=== PATIENT | female | born 2000 | race Two or more races ===

== ENCOUNTER 2022-09-23 20:46 | Inpatient (IN) | payer MEDICAID, OTHER ==
[~2022-09-23] VITALS: Ht 152.4 cm; Wt 36.7 kg
--- NOTE | 2022-09-23 21:20 | NUR ---
Pt is noted alert, responsive was brought in from [facility] for body pain, Nephro Tube infection , pain [id number] 03/31. Pt care continue as awaits MD orders.
[2022-09-23] MEDS ORDERED: KETOROLAC TROMETHAMINE INJ 30 MG/ML VIAL IV ONE (21:30)
[2022-09-23] MEDS ORDERED: KETOROLAC TROMETHAMINE 15 MG/ML VIAL ONE (22:00)
[2022-09-23 22:05] LABS: BASOPHILS % (AUTO) 0.4 % (0.0-2.0); EOSINOPHILS % (AUTO) 4.9 % (0.0-6.0); HEMATOCRIT 32 % (33-45); LYMPHOCYTES # (AUTO) 1.1 K/uL (0.8-4.8); LYMPHOCYTES % (AUTO) 9.6 % (20.0-44.0); MEAN CORPUSCULAR HGB CONC 32 g/dl (31.0-36.0); MEAN CORPUSCULAR VOLUME 89 fL (82-100); MONOCYTES # (AUTO) 0.5 K/uL (0.1-1.30); MONOCYTES % (AUTO) 4.1 % (2.0-12.0); NEUTROPHILS # (AUTO) 9.7 K/uL (1.8-8.9); PLATELET COUNT (AUTO) 655 K/uL (150-450); RED BLOOD CELL COUNT(AUTO) 3.57 MIL/uL (4.0-5.2)
--- NOTE | 2022-09-23 22:30 | NUR ---
Pt is off to CT. Pt care continue.
[2022-09-23 22:33] LABS: ALBUMIN 2.1 g/dL (3.4-5.0); BILIRUBIN,DIRECT 0.1 mg/dL (0.0-0.2); BILIRUBIN,TOTAL 0.2 mg/dL (0.2-1.0); CALCIUM, SERUM 8.8 mg/dL (8.5-10.1); CREATININE 0.8 mg/dL (0.6-1.3); TOTAL PROTEIN, SERUM 8.5 g/dL (6.4-8.2)
[2022-09-23 22:37] LABS: POTASSIUM 2.4 mmol/L (3.5-5.1)
--- NOTE | 2022-09-23 22:46 | NUR ---
Pt is noted back from the CT. Pt care continue.
[2022-09-23] MEDS ORDERED: CEFEPIME 1 GM VIAL ONE (22:52)
[2022-09-23] MEDS ORDERED: IV NS 0.9% 1,000 ML IV ONE (23:00)
[2022-09-23] MEDS ORDERED: POTASSIUM CHLORIDE 20 MEQ TAB.PRT.SR PO ONE (23:00)
[2022-09-23] MEDS ORDERED: CEFEPIME 1 GM in IV D5W 50 ML IV ONE (23:00)
[2022-09-23] MEDS: POTASSIUM CL. PREMIX PERIPHER. 50 ML IV SCH (23:05)
--- NOTE | 2022-09-23 23:15 | NUR ---
Pt is been admitted as awaits bed and also Potassium 10meq IVPB and K-DUR PO 40meq given for Potassium Level off 2.4 and also Maxipim 1g IVPB given as ordered. Pt care contionue.
[2022-09-23 23:16] LABS: BILIRUBIN,URINE NEGATIVE (NEGATIVE); COLOR,URINE YELLOW (YELLOW); LEUKOCYTE ESTERASE ,URINE 3+ (NEGATIVE); NITRITE, URINE POSITIVE (NEGATIVE); PH,URINE 7.5 (5.0-8.0); PROTEIN,URINE TRACE mg/dl (NEGATIVE); UGLUCOSE NEGATIVE (NEGATIVE); UROBILINOGEN,URINE 0.2 EU/dL (0.2)
[2022-09-23 23:23] LABS: BACTERIA,URINE Few /HPF (None Seen); SQUAMOUS EPITHELIAL CELL,UR Moderate /HPF (None Seen)
--- NOTE | 2022-09-23 23:40 | NUR ---
Pt remain full code as report is given to the [facility] RN and Pt is going to Room 113-1. Pt care continue as awaits to be transported to the Floor.
[2022-09-24] VITALS (10 sets, daily range): BP systolic 83–103; BP diastolic 38–56
[2022-09-24] MEDS ORDERED: ZOLPIDEM TARTRATE 5 MG TABLET PO PRN
[2022-09-24] MEDS ORDERED: MAG HYDROX/AL HYDROX/SIMETH 30 ML UDC PO PRN
[2022-09-24] MEDS ORDERED: Z GUARD REMEDY 4 OZ OINT TP PRN
[2022-09-24] MEDS ORDERED: MAGNESIUM HYDROXIDE 30 ML UDC PO PRN
[2022-09-24] MEDS ORDERED: MORPHINE SULFATE INJ 2 MG/ML DISP.SYRIN IV PRN
--- NOTE | 2022-09-24 00:47 | NUR ---
RN NOTE BP 86/49, MANUAL BP TAKEN 74/56. RECEIVED ORDER FROM SKYLA NUGENT FOR 1L NS BOLUS.
--- NOTE | 2022-09-24 01:11 | NUR ---
RN NOTE AUTOMATIC BP OF 86/49; MANUAL BP TAKEN 74/56. ORDER OBTAINED FROM SKYLA NUGENT FOR 1L NS BOLUS. WILL RE-CHECK BP AFTERWARDS.
--- NOTE | 2022-09-24 01:11 | NUR ---
RN INITIAL NOTE PT ARRIVED TO UNIT VIA GURNEY. PT ADMITTED FOR ACUTE PYELONEPHRITIS AND HYPOKALEMIA. MEDICAL HISTORY INCLUDING HIV AND PYELONEPHRITIS. PER PT, SHE DOES NOT HAVE ANY FAMILY MEMBERS AND HAD PUT HERSELF INTO HOSPICE FOR HER HISTORY OF HIV. PT NOTED TO HAVE REDDENED AREAS ON SACRUM, BILATERAL BUTTOCKS, AND RIGHT THIGH. PT ALSO HAD RIGHT ARM AMPUTATION D/T SPIDER BITE PER PT REPORTS. PICTURES TAKEN AND PLACED IN CHART. PT IS A/O X4, CALM, COOPERATIVE, IRRITABLE. PT ON ROOM AIR WITH CURRENT O2SAT OF 98% WITH NO S/S OF RESP DISTRESS. PT ATTACHED TO TELE MONITOR, SR WITH HR OF 96. IV ACCESS ON LEFT WRIST 22G, INTACT AND PATENT, FLUSHES EASILY WITH NO RESISTANCE; NS BOLUS 1L INFUSING. LEFT-SIDED NEPHROSTOMY TUBE INTACT AND PATENT, DRAINING CLEAR AND YELLOW URINE; DRESSING CHANGED; PER PT REPORTS SHE ALSO URINATES "NORMALLY". BELONGINGS CHECKED AND ACCOUNTED FOR. BED IN LOWEST POSITION, CALL LIGHT WITHIN REACH, SIDE RAILS UP X2. WILL INITIATE PLAN OF CARE.
--- NOTE | 2022-09-24 01:40 | NUR ---
RN NOTE AFTER 1L NS BOLUS WAS GIVEN, BP RECHECKED 87/48. RECEIVED ORDER FOR SOLU-CORTEF 100 MG IV. ORDER CARRIED OUT.
[2022-09-24] MEDS: POTASSIUM CL. PREMIX PERIPHER. 50 ML IV SCH ×3 (01:50→02:06)
[2022-09-24] MEDS: IV NS 0.9% 1,000 ML IV PRN ×2 (01:51→16:12)
[2022-09-24] MEDS ORDERED: HYDROCORTISONE SOD SUCCINATE 100 MG/2 ML VIAL IV ONE (02:00)
[2022-09-24] MEDS ORDERED: methylPREDNISolone SOD SUCC 125 MG/2ML VIAL ONE (02:16)
[2022-09-24] MEDS ORDERED: HYDROCORTISONE SOD SUCCINATE 100 MG/2 ML VIAL ONE (02:21)
--- NOTE | 2022-09-24 02:24 | NUR ---
RN NOTE NO STOCK OF SOLU-CORTEF IN [facility]. ATTEMPTED IN ICU, BUT MISTAKENLY TOOK OUT SOLU-MEDROL; NO STOCK OF SOLU-CORTEF IN ICU EITHER. SOLU-CORTEF 100 MG OBTAINED FROM ER. Addendum: 09/24/22 at 0433 by PRINCESS KENDRICK REID SOLU-MEDROL RETURNED PROPERLY BACK IN [facility]
[2022-09-24] MEDS ORDERED: IV LR 1000 ML 1,000 ML IV ONE (03:00)
--- NOTE | 2022-09-24 03:57 | NUR ---
RN NOTE PT COMPLAINS OF PAIN ON IV SITE WITH POTASSIUM INFUSION. PER DELISA NUGENT KCL IV AND GIVE KDUR 20 MEW PO. ORDER CARRIED OUT.
[2022-09-24] MEDS ORDERED: POTASSIUM CHLORIDE 20 MEQ TAB.PRT.SR PO SCH (04:00)
--- NOTE | 2022-09-24 04:26 | NUR ---
RN NOTE 30 MINS AFTER SOLU-CORTEF ADMINISTERED, BP 89/52.
[2022-09-24] MEDS ORDERED: CEFEPIME 1 GM in IV D5W 50 ML IV SCH ×3 (05:00)
--- NOTE | 2022-09-24 05:11 | NUR ---
RN NOTE ATTEMPTED TO GIVE LR BOLUS, BUT PT CRYING SAYING IT HURTS. CURRENT BP OF 92/53. SKYLA NUGENT NOTIFIED AND ASKED IF BOLUS CAN BE HELD UNTIL AFTER MIDLINE INSERTION; PER RAFFI "OK". LR BOLUS ON HOLD FOR NOW.
--- NOTE | 2022-09-24 05:46 | NUR ---
RN NOTE MAXIPIME ORDER FAXED TO NURSING COMMUNITY OUTREACH [facility] AND CALLED TO PULL OUT MED FROM [facility]. AWAITING MED FROM N[facility]SING [facility]ITY [facility]RE[facility]
[2022-09-24] MEDS ORDERED: CEFEPIME 1 GM VIAL ONE (06:25)
[2022-09-24 06:55] LABS: BASOPHILS % (AUTO) 0.2 % (0.0-2.0); EOSINOPHILS % (AUTO) 1.5 % (0.0-6.0); HEMATOCRIT 29 % (33-45); HEMOGLOBIN 9.5 g/dL (11.5-14.8); LYMPHOCYTES # (AUTO) 0.6 K/uL (0.8-4.8); LYMPHOCYTES % (AUTO) 5.4 % (20.0-44.0); MEAN CORPUSCULAR HGB CONC 32 g/dl (31.0-36.0); MEAN CORPUSCULAR VOLUME 91 fL (82-100); MONOCYTES # (AUTO) 0.3 K/uL (0.1-1.30); MONOCYTES % (AUTO) 2.5 % (2.0-12.0); NEUTROPHILS # (AUTO) 9.2 K/uL (1.8-8.9); NEUTROPHILS % (AUTO) 90.4 % (43.0-81.0); PLATELET COUNT (AUTO) 484 K/uL (150-450); RED BLOOD CELL COUNT(AUTO) 3.24 MIL/uL (4.0-5.2); WHITE BLOOD COUNT (AUTO) 10.2 K/uL (4.3-11.0)
--- NOTE | 2022-09-24 07:40 | NUR ---
SEWING MACHINE OPERATOR SEMIAUTOMATIC CLOSING NOTE PT REMAINS IN BED, AWAKE, ANXIOUS. CONTINUES TO BE ON RA WITH O2SAT STABLE AT 98% WITH NO S/S OF RESP DISTRESS. ATTACHED TO TELE MONITOR, SR WITH HR 82-98. LEFT SIDE NEPHROSTOMY TUBE INTACT AND PATENT, DRAINING CLEAR AND YELLOW URINE. IV ACCESS ON LFA 22G, INTACT AND PATENT, NS INFUSING AT 120 ML/HR AND MAXIPIME AT 100 ML/HR. ALL DUE MEDS ADMINISTERED DURING THE NIGHT. BED IN LOWEST POSITION, CALL LIGHT WITHIN REACH, SIDE RAILS UP X2. WILL ENDORSE TO DAYSHIFT NURSE TO CONTINUE CARE.
[2022-09-24 07:51] LABS: ALBUMIN 1.8 g/dL (3.4-5.0); CALCIUM, SERUM 8.6 mg/dL (8.5-10.1); CREATININE 0.8 mg/dL (0.6-1.3); MAGNESIUM 2.2 mg/dL (1.8-2.4); POTASSIUM 2.9 mmol/L (3.5-5.1); TOTAL PROTEIN, SERUM 7.6 g/dL (6.4-8.2)
[2022-09-24 08:02] LABS: BILIRUBIN,TOTAL 0.2 mg/dL (0.2-1.0); PHOSPHORUS 3.8 mg/dL (2.5-4.9)
--- NOTE | 2022-09-24 09:07 | NUR ---
WOUND CARE CONSULT: PT LYING ON HER RT SIDE AND REFUSED TO TURN OVER FOR FULL SKIN ASSESSMENT. PT NOTED TO HAVE NEPHROSTOMY TUBE WITH DRAINAGE BAG, SACRAL INTACT DEEP TISSUE INJURY AND LARGE AREA OF SCARRING TO SACRAL/BUTTOCKS, UPPER THIGHS, ALL PRESENT ON ADMISSION. DISCUSSED SKIN PROTECTION WITH NURSING STAFF. PT IS INCONTINENT. IN AGREEMENT WITH PLAN OF CARE. Addendum: 09/24/22 at 0910 by MARCIN TRAYLOR WNDNU Amended: Links added.
[2022-09-24] MEDS ORDERED: QUET400T PO (09:48)
[2022-09-24] MEDS ORDERED: ACET-2605 PO (09:48)
[2022-09-24] MEDS ORDERED: LORA-259 PO (09:48)
[2022-09-24] MEDS ORDERED: ASCO-352 PO (09:48)
[2022-09-24] MEDS ORDERED: FAMO20TA8 PO (09:48)
[2022-09-24] MEDS ORDERED: MIRT-90 PO (09:48)
[2022-09-24] MEDS ORDERED: MULT-24 PO (09:48)
[2022-09-24] MEDS ORDERED: DOCU250C14 PO (09:48)
[2022-09-24] MEDS ORDERED: METO25TA3 PO (09:48)
[2022-09-24] MEDS ORDERED: GABA-532 PO (09:48)
[2022-09-24] MEDS ORDERED: ZINC1CAP2 PO (09:48)
--- NOTE | 2022-09-24 11:30 | NUR ---
RN NOTES NOTIFIED DR. WELLER THAT PT'S PAIN IS NOT CONTROLLED. PER DR. WELLER'S REQUEST, PLACED ORDER FOR D/C OF 1MG MORPHINE AND PLACE ORDER FOR 2MG MORPHINE IV Q3H AND NORCO 10MG PO Q6H INSTEAD.
[2022-09-24] MEDS ORDERED: HYDROCODONE/APAP 10/325MG TABLET PO PRN (12:00)
[2022-09-24] MEDS ORDERED: POTASSIUM CHLORIDE 20 MEQ POWDER PACKET PO ONE (12:00)
[2022-09-24] MEDS: MORPHINE SULFATE INJ 2 MG/ML DISP.SYRIN IV PRN ×3 (12:09→18:30)
[2022-09-24] MEDS: ONDANSETRON HCL/PF 4 MG/2 ML VIAL IVP PRN ×2 (13:43→23:30)
--- NOTE | 2022-09-24 13:50 | NUR ---
RN NOTES NOTIFIED DR. WELLER THAT PT WAS UNABLE TO TOLERATE ORAL POTASSIUM AND VOMITTED X1. ZOFRAN WAS GIVEN. RECEIVED VERBAL ORDERS FROM DR. WELLER TO ORDER CEPACOL LOZENGE Q2H FOR PT'S SORE THROAT.
[2022-09-24] MEDS: MENTHOL/CETYLPYRD (CEPACOL) 1 LOZ LOZENGE PO PRN ×2 (15:18→22:11)
[2022-09-24] MEDS: CEFEPIME 2 GM in IV D5W 100 ML IV SCH (16:01)
[2022-09-24] MEDS: PROSOURCE / PROSTAT (PYXIS) 30 ML UDC GT SCH (16:01)
--- NOTE | 2022-09-24 16:19 | NUR ---
RN NOTES PT IS STABLE, VSS, ALL DUE MEDICATIONS GIVEN. REPORT GIVEN TO DESTINEY FOR CONTINUATION OF CARE.
[2022-09-24] MEDS: ENSURE ENLIVE CHOC 237 ML CAN PO SCH (17:20)
[2022-09-24] MEDS: ACETAMINOPHEN 325 MG TABLET PO PRN (17:45)
[2022-09-24] MEDS ORDERED: ACETAMINOPHEN 650 MG/SUPP.RECT RC PRN (18:00)
[2022-09-24] MEDS ORDERED: LORAZEPAM INJ 2 MG/ML VIAL IV ONE (18:00)
[2022-09-24] MEDS ORDERED: MEPERIDINE25 MG SYR 25 MG/ML VIAL IV ONE ×2 (18:30→20:30)
--- NOTE | 2022-09-24 18:35 | NUR ---
rn note pharmacy refused to dispense the Demerol doctor Nicko Love notified
--- NOTE | 2022-09-24 18:43 | NUR ---
ORDER CHECKER CLOSING NOTE PT REMAINS IN BED, AWAKE, ANXIOUS. CONTINUES TO BE ON RA WITH O2SAT STABLE AT 98%CURRENTLY HAS FEVER 106 , TYLENOL SUPPOSITORY 650 MG ADMINISTERED. PATIENT IS ATTACHED TO TELE MONITOR RECENTLY HAD VTACH EPISODE DR HE PROVIDED WITH REPORT AFTER INFUSING ATIVAN 0.5 MG IV AND MORPHINE 2 MG IV , PATIENT CALMED DOWN , SR WITH HR 82-98. LEFT SIDE NEPHROSTOMY TUBE INTACT AND PATENT, DRAINING CLEAR AND YELLOW URINE. IV ACCESS ON LFA 22G, INTACT AND PATENT, NS INFUSING AT 120 ML/HR ALL DUE MEDS ADMINISTERED DURING THE DAY SHIFT BED IN LOWEST POSITION, CALL LIGHT WITHIN REACH, SIDE RAILS UP X2. WILL ENDORSE TO HAND MOLDER AND CASTER NURSE TO CONTINUE CARE.
--- NOTE | 2022-09-24 20:03 | NUR ---
TOP STOP ATTACHER OPENING NOTE PATIENT AWAKE IN BED, ALERT/ORIENTED X 4, PT ABLE TO MAKE NEEDS KNOWN. PATIENT STILL C/O 10/10 PAIN DESPITE MORPHINE 2 MG IV GIVEN RECENTLY. PATIENT'S BP LOW, 83/39 AT THE MOMENT, ONLY ALLOWING US TO TAKE BP ON LEG, WILL REASSESS. PATIENT ON EXTERNAL BARIATRIC NURSE READING SINUS TACHY, HR: 112. IV ACCESS ON LFA #22G INTACT AND INFUSING NS @ 120 ML/HR. LEFT NEPHROSTOMY TUBE IN PLACE AND DRAINING URINE. SAFETY MEASURES IN PLACE: CALL LIGHT WITHIN REACH, SIDE RAILS UP X 2, BED LOCKED IN LOWEST POSITION, HOB ELEVATED, BED ALARM ON. WILL CONTINUE TO MONITOR PATIENT
[2022-09-24] MEDS ORDERED: IV NS 0.9% 1,000 ML IV ONE (21:00)
--- NOTE | 2022-09-24 21:05 | NUR ---
RAILCAR FOREMAN NOTE NOTIFIED APPLICATIONS PROGRAMMER ANALYST SKYLA NUGENT OF LOW BP, REASSESSED BP = 86/43, HR: 114. PER SKYLA 1000 ML BOLUS OF NS. PATIENT ALSO C/O OF 03/31, PER SKYLA GIVE DEMEROL 12.5 MG IV X 1. ALSO NOTIFIED OF LOW POTASSIUM 2.9, PER DAYSHIFT RN PATIENT UNABLE TO TOLERATE POTASSIUM IV AND THREW UP PO K DUR. PER SKYLA SHE WILL PUT ORDER FOR K LIDO 40 MEQ
[2022-09-24] MEDS ORDERED: POTASSIUM CL. PREMIX PERIPHER. 200 ML ONE (22:25)
[2022-09-24] MEDS ORDERED: LIDOCAINE HCL/PF 1% 30 ML SDV ONE (22:27)
--- NOTE | 2022-09-24 22:29 | NUR ---
WATERMELON HARVESTING SUPERVISOR NOTE PER GOLD ASSAYER SKYLA NUGENT, ORDER FOR 4 BAGS OF POTASSIUM CHLORIDE 10 MEQ WITH XYLOCAINE MPF 1% 1 ML IN D5W 50 ML. MEDICATION NOT AVAILABLE IN [facility]. COMMUNITY AFFAIRS MANAGER DAYRON CALLED PHARMACY TO CONFIRM ORDER, PER PHARMACIST MIX 1 ML OF LIDOCAINE PER EACH BAG OF POTASSIUM CHLORIDE 10 MEQ. COMMUNITY AFFAIRS MANAGER OVERRIDE 4 BAGS OF POTASSIUM 10 MEQ AND 1 VIAL OF LIDOCAINE 1% MPF, WILL ONLY USE 1 ML PER BAG AND WASTE THE REST OF THE VIAL
[2022-09-24] MEDS: Potassium Chloride 10 MEQ, LIDOCAINE HCL/PF 1% 1 ML in IV D5W 50 ML IV SCH (22:35)
--- NOTE | 2022-09-24 23:35 | NUR ---
WATER MANAGER NOTE PATIENT NAUSEOUS WITH 1 EPISODE OF EMESIS 200 ML. PRN ZOFRAN 4 MG IV GIVEN. WILL CONTINUE TO MONITOR
[2022-09-25] VITALS (10 sets, daily range): BP systolic 80–105; BP diastolic 40–79
[2022-09-25] MEDS ORDERED: LORAZEPAM INJ 2 MG/ML VIAL IV ONE
[2022-09-25] MEDS: Potassium Chloride 10 MEQ, LIDOCAINE HCL/PF 1% 1 ML in IV D5W 50 ML IV SCH ×3 (00:05→03:20)
--- NOTE | 2022-09-25 00:05 | NUR ---
TEXTILES PRINTER NOTE PATIENT VERY ANXIOUS AND AGITATED, YELLING FOR HELP, PATIENT SHAKING DESPITE HAVING 8 BLANKETS PER PATIENT REQUEST. VITALS ASSESSED BP 99/79, HR: 159, TEMP 98.6. CONTACTED GENERAL DISTILLERY WORKER MD SKYLA NUGENT WITH ORDER FOR ATIVAN 1 MG IV X 1 TIME. AGUILA CLAROS ALSO PLACED ON PATIENT.
--- NOTE | 2022-09-25 00:20 | NUR ---
INDUSTRIAL MAINTENANCE TECH NOTE PATIENT UNABLE TO TOLERATE POTASSIUM IV @ 50 ML/HR, STATED THAT IT HURTS HER DESPITE HAVING LIDOCAINE IN IT. INFUSING POTASSIUM @ 20 ML/HR FOR THIS REASON AND INFUSION TAKING LONGER THAN SCHEDULED 1 HR. INCREASED TO 30 ML/HR AT THIS TIME. WILL CONTINUE TO MONITOR
[2022-09-25] MEDS: MENTHOL/CETYLPYRD (CEPACOL) 1 LOZ LOZENGE PO PRN (01:29)
--- NOTE | 2022-09-25 01:57 | NUR ---
LEATHER PRODUCTS SUPERVISOR NOTE PATIENT YELLING, SCREAMING AND BANGING SIDE RAILS, PATIENT ASKING FOR MORPHINE 2 MG IV BUT BP IS LOW 80/58, EXPLAINED TO PATIENT THAT IT IS UNSAFE FOR ME TO GIVE MORPHINE SINCE HER BP IS TOO LOW. PATIENT STATED SHE DIDN'T CARE AND CONTINUES TO YELL "I WANT MY PAIN MEDS NOW!" EXPLAINED TO PATIENT THAT OTHER PATIENTS ARE SLEEPING AND THAT SHE CAN'T BE YELLING BUT PATIENT STATED "I DON'T CARE!". CONTACTED CANOE BUILDER MD SKYLA NUGENT, NO NEW ORDERS, STATED NOT TO GIVE MORPHINE AT THIS TIME
--- NOTE | 2022-09-25 03:29 | NUR ---
FITNESS MANAGEMENT DIRECTOR NOTE PATIENT CONTINUES TO YELL UNCONTROLLABLY, PATIENT THROWING THINGS ACROSS THE ROOM AND INTO HALLWAY. SPOKE TO PATIENT ABOUT UNACCEPTABLE BEHAVIOR AND PATIENT JUST YELLED "I DON'T CARE! I WANT MY MORPHINE NOW! I'M GOING TO KEEP YELLING UNTIL I GET MY MORPHINE!" MOVED BEDSIDE TABLE TO PATIENT COULDN'T THROW THINGS. CONTACTED REAL ESTATE ACCOUNTANT MD SKYLA NUGENT, PER SKYLA GIVE 1 L NS BOLUS AND MORPHINE 1 MG IV X 1 TIME
[2022-09-25] MEDS ORDERED: MORPHINE SULFATE INJ 2 MG/ML DISP.SYRIN IV ONE (03:30)
[2022-09-25] MEDS ORDERED: IV NS 0.9% 1,000 ML IV ONE ×2 (03:30→11:30)
[2022-09-25] MEDS: ACETAMINOPHEN 325 MG TABLET PO PRN ×3 (04:15→18:18)
--- NOTE | 2022-09-25 04:20 | NUR ---
SOIL CONSERVATION TEACHER NOTE PATIENT NOTED WITH TEMP 101.2. TYLENOL 650 MG PO GIVEN ORDERED. WILL CONTINUE TO MONITOR
[2022-09-25] MEDS: CEFEPIME 2 GM in IV D5W 100 ML IV SCH ×2 (04:33→16:28)
--- NOTE | 2022-09-25 05:24 | NUR ---
GUMMING MACHINE OPERATOR NOTE WASTED REMAINING 26 ML OF LIDOCAINE VIAL IN RX DESTROYER
--- NOTE | 2022-09-25 06:40 | NUR ---
ART MUSEUM AIDE NOTE PER BRAND AMBASSADOR PROMOTIONAL MODEL SKYLA NUGENT, PATIENT NEEDS PSYCH EVAL. FACESHEET FAXED TO [employer]
--- NOTE | 2022-09-25 06:41 | NUR ---
CASH CONTROLLER CLOSING NOTE PATIENT SLEEPING IN BED, CALM NOW, ALERT/ORIENTED X 3, PT ABLE TO MAKE NEEDS KNOWN. PATIENT STABLE ON 2 LPM OF O2 ALTHOUGH PATIENT REMOVES AT TIMES, NO S/S OF DISTRESS OR SOB NOTED, BREATHING EVEN AND UNLABORED. PATIENT ON EXTERNAL WINCH DERRICK OPERATOR, SINUS RHYTHM AT THIS TIME, HR: 86, HOWEVER PATIENT WAS SINUS TACHY MOST OF THE NIGHT WITH HR UP TO 160'S AT TIMES. IV ACCESS ON LEFT HAND #20G INTACT AND INFUSING NS @ 120 ML/HR, LEFT FOREARM IV #22G INTACT AND SALINE LOCKED. LEFT NEPHROSTOMY TUBE IN PLACE WITH 1500 ML OUTPUT OF CLEAR YELLOW URINE, PATIENT HAD 1 BM, STILL PEES NORMALLY WELL. MEDICATIONS GIVEN ORDERED, PT NEEDS MET THROUGHOUT SHIFT. PATIENT'S LATEST TEMP 98.8 AFTER TYLENOL GIVEN, LATEST BP 98/42, S/P 2 L NS BOLUSES THIS SHIFT, KCL WITH LIDOCAINE 40 MEQ GIVEN ORDERED. SAFETY MEASURES IN PLACE: CALL LIGHT WITHIN REACH, SIDE RAILS UP X 3, BED LOCKED IN LOWEST POSITION, HOB ELEVATED, BED ALARM ON. WILL ENDORSE TO DAYSHIFT RN FOR CONTINUITY OF CARE
[2022-09-25] MEDS: IV NS 0.9% 1,000 ML IV PRN ×2 (06:55→15:53)
[2022-09-25 07:03] LABS: CALCIUM, SERUM 8.1 mg/dL (8.5-10.1); CREATININE 0.7 mg/dL (0.6-1.3); MAGNESIUM 1.8 mg/dL (1.8-2.4); PHOSPHORUS 2.5 mg/dL (2.5-4.9); POTASSIUM 3.5 mmol/L (3.5-5.1)
[2022-09-25 07:07] LABS: BASOPHILS % (AUTO) 0.7 % (0.0-2.0); EOSINOPHILS % (AUTO) 3.4 % (0.0-6.0); HEMATOCRIT 21 % (33-45); LYMPHOCYTES # (AUTO) 1.2 K/uL (0.8-4.8); LYMPHOCYTES % (AUTO) 16.5 % (20.0-44.0); MEAN CORPUSCULAR HGB CONC 31 g/dl (31.0-36.0); MEAN CORPUSCULAR VOLUME 92 fL (82-100); MONOCYTES # (AUTO) 0.4 K/uL (0.1-1.30); MONOCYTES % (AUTO) 5.7 % (2.0-12.0); NEUTROPHILS # (AUTO) 5.3 K/uL (1.8-8.9); NEUTROPHILS % (AUTO) 73.7 % (43.0-81.0); PLATELET COUNT (AUTO) 424 K/uL (150-450); RED BLOOD CELL COUNT(AUTO) 2.29 MIL/uL (4.0-5.2); WHITE BLOOD COUNT (AUTO) 7.2 K/uL (4.3-11.0)
[2022-09-25 07:09] LABS: HEMOGLOBIN 6.6 g/dL (11.5-14.8)
--- NOTE | 2022-09-25 07:15 | NUR ---
LAWN SERVICE SUPERVISOR NOTE PHARMACY CALLED FOR CRITICAL LAB HGB 6.6, PATIENT NOT HAVING ANY BLEEDING. PER WING COMMANDER DAYRON ORDER STAT BLOOD REDRAW FOR H/H. MAY BE DILUTIONAL SINCE PATIENT RECEIVED 2 L BOLUS THIS SHIFT. WILL ENDORSE TO DAYSHIFT RN
--- NOTE | 2022-09-25 07:49 | NUR ---
JUNIOR COPYWRITER OPENING NOTE RECEIVED PATIENT IN BED SLEEPING, EASILY AWAKE, VERBALLY RESPONSIVE WHEN AWAKEN, ALERT/ORIENTED X 4, PT ABLE TO MAKE NEEDS KNOWN. NO C/O OF PAIN AT THIS TIME. BP CHECK NOTED 92/48, NO C/O OF DIZZINESS OR HEADACHE. ON 2LPM 02 VIA NC, TOLERATING WELL. NOT IN ANY DISTRESS, NO SOB NOTED, RESPIRATION EVEN AND UNLABORED. PATIENT ON EXTERNAL PROTOTYPE TECHNICIAN READING SR HR 86. IV ACCESS ON LFA #22G INTACT AND INFUSING NS @ 120 ML/HR. LEFT NEPHROSTOMY TUBE IN PLACE AND DRAINING CLEAR YELLOW URINE. SAFETY MEASURES IN PLACE: CALL LIGHT WITHIN REACH, SIDE RAILS UP X 2, BED LOCKED IN LOWEST POSITION, HOB ELEVATED, BED ALARM ON. PLAN OF CARE CONTINUE.
[2022-09-25 08:10] LABS: HEMOGLOBIN 7.3 g/dL (11.5-14.8)
[2022-09-25] MEDS: ENSURE ENLIVE CHOC 237 ML CAN PO SCH ×2 (08:20→16:49)
[2022-09-25] MEDS: PROSOURCE / PROSTAT (PYXIS) 30 ML UDC GT SCH ×2 (08:20→16:49)
[2022-09-25] MEDS: MORPHINE SULFATE INJ 2 MG/ML DISP.SYRIN IV PRN ×5 (09:18→21:48)
[2022-09-25] MEDS ORDERED: MEPERIDINE25 MG SYR 25 MG/ML VIAL IV STA (11:23)
--- NOTE | 2022-09-25 11:35 | NUR ---
VASQUEZ WELLER AT THE BEDSIDE, WITH NEW ORDER FOR DEMEROL 12.5MG X1 NOW, NS 1L BOLUS AND GIVE MORPHINE NOW,AND STAT ECHO NOTED AND CARRIED OUT.
--- NOTE | 2022-09-25 12:46 | NUR ---
PATIENT REQUESTED TO SPEAK WITH THE IMPORT COORDINATION AND PRODUCTION HEAD REGARDING THE FOOD, PER PATIENT THEY ARE SERVING HER NASTY FOOD, INFORMED DIETARY DEPARTMENT, DIETARY DEPARTMENT IS SPEAKING WITH THE PATIENT THIS MOMENT.
--- NOTE | 2022-09-25 12:46 | NUR ---
CALLED ECHO DEPARTMENT AND FOLLOW UP REGARDING THE STAT ECHO
[2022-09-25] MEDS: ONDANSETRON HCL/PF 4 MG/2 ML VIAL IVP PRN (13:18)
[2022-09-25 13:26] LABS: BASOPHILS % (MANUAL) 0 % (0.0-2.0); EOSINOPHILS % (MANUAL) 4 % (0-4); LYMPHOCYTES % (MANUAL) 14 % (16-48); MONOCYTES % (MANUAL) 6 % (0-11.0); NEUTROPHILS % (MANUAL) 76 (42-76)
--- NOTE | 2022-09-25 13:56 | NUR ---
Receiving endorsement from JEANETTE Byrnes, for assuming nursing care at this time.
--- NOTE | 2022-09-25 13:56 | NUR ---
GAVE REPORT TO PAMELA REID FOR LEONARDA.
--- NOTE | 2022-09-25 14:03 | NUR ---
Patient up to restroom. No new needs at this time.
--- NOTE | 2022-09-25 14:13 | NUR ---
Call from Ronald meat team member with questions about patient activity/care needs for evaluation of pending placement.
--- NOTE | 2022-09-25 15:42 | NUR ---
Patient request for her coloring books from board and care facility she said [facility] may have them. Associate Buyer call to facility [phone] but did not locate the books and markers. Assist TRADE MARKER with perineal/wound/skin care. Patient says she has a fever but wants to keep warming blanket at 32 celcius which feels like 90degrees to commercial loan underwriter on near her but not over her at all times. Request for ice chips given. She is asking for cranberry juice and apple juice. Will give if available.
--- NOTE | 2022-09-25 16:39 | NUR ---
Two dimensional echocardiogram report sent to Provider, Doctor Martin. New order is given to give 500 milliliter bolus of normal saline.
[2022-09-25] MEDS ORDERED: IV NS 0.9% 500 ML IV ONE (17:00)
--- NOTE | 2022-09-25 17:09 | NUR ---
Patient complaint of shaking feeling. No observable shaking visible from beneath the warming blanket. Patient says she needs a medicine for shaking. Asking if this is accompanied by discomfort or other symptoms of agitation as she was receiving a large fluid bolus. Left nephrostomy drain intact and empty as per guidelines of asepsis. Pain medication as needed is not available at this time. Will look for other treatments to palliate symptoms/provide listening. Patient complaint of feeling a fever. Temperature check 99.8 degrees Fahrenheit via temperal scan method.
--- NOTE | 2022-09-25 18:22 | NUR ---
Patient notes a feeling of cold/chills. Charge nurse suggestion to give as needed tylenol as patient temperature 100.4 degrees Fahrenheit and patient wants to place bear hugger device on a warmer setting.
--- NOTE | 2022-09-25 19:22 | NUR ---
Handoff with JEANETTE Pond.
--- NOTE | 2022-09-25 19:30 | NUR ---
RN NOTE RECEIVED PT IN BED, ASLEEP AT THIS. NO S/SX OF PAIN/DISCOMFORT AT THIS TIME. RESP EVEN AND UNLABORED, ON ROOM AIR. PT ATTACHED TO EXTERNAL SUPERVISOR KNITTING READING ST HR112. PIV ACCESS ON LFA #22 ON SL, L WRIST #20G INFUSING NS AT 120ML/HR, WELL TOLERATED. L NEPHROSTOMY TUBE BAG IN PLACED, PATENT, DRAINING CLEAR YELLOW URINE. NAYLA HUGGER IN PLACED, NO BODY RIGORS NOTED AT THIS TIME. SAFETY PRECAUTION IMPLEMENTED. BED LOCKED AND IN LOWEST POSITION. CALL LIGHT WITHIN EASY REACH.
[2022-09-26] VITALS (11 sets, daily range): BP systolic 81–106; BP diastolic 36–57
[2022-09-26] MEDS: IV NS 0.9% 1,000 ML IV PRN (01:04)
[2022-09-26] MEDS: MORPHINE SULFATE INJ 2 MG/ML DISP.SYRIN IV PRN ×8 (01:09→21:29)
[2022-09-26] MEDS: CEFEPIME 2 GM in IV D5W 100 ML IV SCH (03:09)
[2022-09-26] MEDS: ACETAMINOPHEN 325 MG TABLET PO PRN ×3 (03:16→23:28)
[2022-09-26 05:07] LABS: *BASOS 0 % (Not Estab.); *EOS 3 % (Not Estab.); *EOS, ABSOLUTE 0.3 x10E3/uL (0.0-0.4); *HCT 23.4 % (34.0-46.6); *HGB 7.6 g/dL (11.1-15.9); *IMMATURE GRANULOCYTES 1 % (Not Estab.); *IMMATURE GRANULOCYTES(ABS) 0.1 x10E3/uL (0.0-0.1); *LYMPHOCYTES 7 % (Not Estab.); *LYMPHS, ABSOLUTE 0.7 x10E3/uL (0.7-3.1); *MCH 29.2 pg (26.6-33.0); *MCHC 32.5 g/dL (31.5-35.7); *MCV 90 fL (79-97); *MONOCYTES 5 % (Not Estab.); *MONOS, ABSOLUTE 0.5 x10E3/uL (0.1-0.9); *NEUTROPHILS 84 % (Not Estab.); *PLT 489 x10E3/uL (150-450); *RDW 15.4 % (11.7-15.4)
[2022-09-26 06:44] LABS: BASOPHILS % (AUTO) 0.7 % (0.0-2.0); EOSINOPHILS % (AUTO) 5.7 % (0.0-6.0); HEMATOCRIT 22 % (33-45); LYMPHOCYTES # (AUTO) 0.8 K/uL (0.8-4.8); LYMPHOCYTES % (AUTO) 13.7 % (20.0-44.0); MEAN CORPUSCULAR HGB CONC 31 g/dl (31.0-36.0); MEAN CORPUSCULAR VOLUME 92 fL (82-100); MONOCYTES # (AUTO) 0.2 K/uL (0.1-1.30); MONOCYTES % (AUTO) 3.9 % (2.0-12.0); NEUTROPHILS # (AUTO) 4.7 K/uL (1.8-8.9); PLATELET COUNT (AUTO) 380 K/uL (150-450); RED BLOOD CELL COUNT(AUTO) 2.41 MIL/uL (4.0-5.2); WHITE BLOOD COUNT (AUTO) 6.2 K/uL (4.3-11.0)
--- NOTE | 2022-09-26 07:00 | NUR ---
RN NOTE RECEIVED PT IN BED, ASLEEP AT THIS, BUT REPLIES WHEN SPOKEN TO. NO S/SX OF PAIN/DISCOMFORT AT THIS TIME. RESP EVEN AND UNLABORED, ON ROOM AIR. PIV ACCESS ON LEFT HAND IV ACCESS WELL TOLERATED. L NEPHROSTOMY TUBE BAG IN PLACED, PATENT, DRAINING CLEAR YELLOW URINE. NAYLA HUGGER IN PLACED, NO BODY RIGORS NOTED AT THIS TIME. SAFETY PRECAUTION IMPLEMENTED. BED LOCKED AND IN LOWEST POSITION. CALL LIGHT WITHIN EASY REACH.
[2022-09-26 07:09] LABS: CALCIUM, SERUM 8.4 mg/dL (8.5-10.1); CREATININE 0.8 mg/dL (0.6-1.3); MAGNESIUM 1.7 mg/dL (1.8-2.4); PHOSPHORUS 3.8 mg/dL (2.5-4.9)
[2022-09-26 07:10] LABS: HEMOGLOBIN 6.8 g/dL (11.5-14.8)
[2022-09-26 07:20] LABS: POTASSIUM 2.5 mmol/L (3.5-5.1)
--- NOTE | 2022-09-26 07:20 | NUR ---
RN NOTE PT RESTING IN BED, AWAKE, ALERT, VERB RESPONSIVE. ON ROOM AIR, WELL TOLERATED. RESPIRATION EVEN AND UNLABORED. AFEBRILE. ALL NEEDS ATTENDED. WKEPT CLEAN, DRY AND COMFORTABLE. REPORT GIVEN TO AM SHIFT NURSE
--- NOTE | 2022-09-26 07:48 | NUR ---
RN NOTE LAB CALLED, REPORTED POTASSIUM 2.5 AND HEMOGLOBIN 6.8 WITH ORDER OF KCL 60 MeQ IV WITH LIDOCAINE AND 1 UNIT RBCS, AND I Addendum: 09/26/22 at 1310 by LORNA DIAZ RN AND I UNIT FFP
--- NOTE | 2022-09-26 08:42 | NUR ---
RN NOTES: PT ASKED FOR IV MORPHINE FOR PAIN, BP 85/[address] VASQUEZ WELLER OK TO GIVE MORPHINE ALSO WITH ORDER TO GIVE ALBUMIN [address] NOTIFIED PT IS REFUSING BLOOD DRAW OK TO WAIT FOR MIDLINE INSERTION FOR BLOOD DRAW. STATED BP IS LOW RELATED TO HER WEIGHT
[2022-09-26] MEDS: PROSOURCE / PROSTAT (PYXIS) 30 ML UDC GT SCH ×3 (08:56→17:00)
[2022-09-26] MEDS: ENSURE ENLIVE CHOC 237 ML CAN PO SCH (08:57)
[2022-09-26] MEDS ORDERED: ALBUMIN 25% 12.5 GM/50 ML BOTTLE IV ONE (09:00)
[2022-09-26] MEDS: ALBUMIN 25% 25 GM in PREMIX 1 EA IV SCH ×2 (09:08→09:27)
[2022-09-26] MEDS: Potassium Chloride 10 MEQ, LIDOCAINE HCL/PF 1% 1 ML in IV D5W 50 ML IV SCH ×6 (10:30→20:11)
--- NOTE | 2022-09-26 10:37 | NUR ---
RN NOTE DOCTOR JAMAAL WAS NOTIFIED THAT PATIENT IS COMPLAINING OF PAIN 10/10 ON LEFT SIDE. MORPHINE IV WAS GIVEN AT 8:53. PER DOCTOR, INCREASE Ms 4 MG Q2 HOURS AND TO GIVE NOW.
[2022-09-26] MEDS: ONDANSETRON HCL/PF 4 MG/2 ML VIAL IVP PRN (11:06)
[2022-09-26 11:07] LABS: *% CD 4 POS. LYMPH 18.2 % (30.8-58.5); *% CD 8 POS. LYMPH 60.2 % (12.0-35.5); *ABSOLUTE CD 4 HELPER 127 /uL (359-1519); *ABSOLUTE CD 8 SUPPRESSOR 421 /uL (109-897)
[2022-09-26 12:20] LABS: THYROID STIMULATING HORMONE 1.069 uIU/mL (0.358-3.74)
--- NOTE | 2022-09-26 12:36 | NUR ---
RN NOTE PATIENT WITH FEVER 100, TYLENOL PO GIVEN, REFUSES COOLING MEASURES AT THIS TIME.
[2022-09-26] MEDS: Magnesium 1GM/D5W 100ML PREMIX 100 ML IV SCH ×2 (12:54→15:29)
--- NOTE | 2022-09-26 12:58 | NUR ---
RN NOTES PATIENTS VITAL SIGNS 84/36 HR 109 TEMP 101.3, WAS GIVEN TYLENOL PO AT 1213 AND REFUSING COOLING MEASURES. DR JAMAAL Pagan NOTIFIED AND NO NEW ORDERS AT THIS TIME.
[2022-09-26] MEDS: diphenhydrAMINE HCL 50 MG/ML VIAL IV PRN ×2 (13:19→23:28)
--- NOTE | 2022-09-26 13:33 | NUR ---
RN NOTES PATIENT POTASSIUM IV WAS STOPPED, PATIENT STATIN SHE DOESN'T WANT IT, ALSO REFUSING IV MIDLINE. PATIENT IS SCREAMING AND ATTEMPTING TO BITE. BLOOD CAN NOT BE ADMINISTERED AT THIS TIME. DR JAMAAL Pagan NOTIFIED. NO NEW ORDERS RECEIVED.
[2022-09-26] MEDS ORDERED: VANCOMYCIN HCL 0.75 GM in IV D5W 250 ML IV ONE (14:00)
[2022-09-26] MEDS: LR IV SCH (14:10)
[2022-09-26] MEDS: POTASSIUM CHLORIDE IV SCH (14:10)
[2022-09-26] MEDS: MEROPENEM 1 G in IV NS 0.9% 100 ML IV SCH (14:15)
[2022-09-26 17:29] LABS: EOSINOPHILS % (MANUAL) 5 % (0-4); LYMPHOCYTES % (MANUAL) 14 % (16-48); MONOCYTES % (MANUAL) 3 % (0-11.0); NEUTROPHILS % (MANUAL) 78 (42-76)
--- NOTE | 2022-09-26 19:19 | NUR ---
SPLINE ROLLING MACHINE JOB SETTER CLOSING NOTE PATIENT ALERT IN BED, CALM NOW, ALERT/ORIENTED X 3, PT ABLE TO MAKE NEEDS KNOWN. PATIENT STABLE ON ROOM AIR, NO S/S OF DISTRESS OR SOB NOTED, BREATHING EVEN AND UNLABORED. PATIENT ON EXTERNAL MISSION ANALYST, SINUS RHYTHM AT THIS TIME, HR: 860. MIDLINE MAGGIE 18 PATENT AND FLUSHING WELL. LEFT NEPHROSTOMY TUBE IN PLACE WITH 1575 ML OUTPUT OF CLEAR YELLOW URINE, PATIENT HAD NO BM, STILL PEES NORMALLY WELL. MEDICATIONS GIVEN ORDERED, PT NEEDS MET THROUGHOUT SHIFT. MORPHINE GIVE ORDERED BY MD, PATIENT PAIN AT THIS TIME IS 3/10. SAFETY MEASURES IN PLACE: CALL LIGHT WITHIN REACH, SIDE RAILS UP X 3, BED LOCKED IN LOWEST POSITION, HOB ELEVATED, BED ALARM ON. WILL ENDORSE TO RICKSHAW DRIVER RN FOR CONTINUITY OF CARE
--- NOTE | 2022-09-26 20:51 | NUR ---
Blood finished VST98.1 HR 83 Resp 18 87/51
[2022-09-26] MEDS: VANCOMYCIN 500 MG in IV D5W 100ml IV SCH (21:17)
[2022-09-27] VITALS (9 sets, daily range): BP systolic 68–142; BP diastolic 30–98
[2022-09-27 00:21] LABS: BILIRUBIN,URINE NEGATIVE (NEGATIVE); COLOR,URINE YELLOW (YELLOW); LEUKOCYTE ESTERASE ,URINE 1+ (NEGATIVE); NITRITE, URINE POSITIVE (NEGATIVE); PROTEIN,URINE 1+ mg/dl (NEGATIVE); UGLUCOSE NEGATIVE (NEGATIVE); UROBILINOGEN,URINE 0.2 EU/dL (0.2)
[2022-09-27 00:23] LABS: RBC,URINE 0-2 /HPF (0-2); SQUAMOUS EPITHELIAL CELL,UR Few /HPF (None Seen)
[2022-09-27 00:24] LABS: BACTERIA,URINE Moderate /HPF (None Seen)
[2022-09-27] MEDS: MEROPENEM 1 G in IV NS 0.9% 100 ML IV SCH ×2 (01:01→13:15)
[2022-09-27 01:06] LABS: URINE SODIUM, RANDOM 34 mmol/l (40-220)
[2022-09-27 01:30] LABS: CREATININE, URINE < 13.0 MG/DL (30.0-125.0)
[2022-09-27] MEDS: LR IV SCH ×3 (05:42→14:52)
[2022-09-27] MEDS: POTASSIUM CHLORIDE IV SCH ×3 (05:42→14:52)
[2022-09-27] MEDS: VANCOMYCIN 500 MG in IV D5W 100ml IV SCH (05:42)
--- NOTE | 2022-09-27 06:23 | NUR ---
CLOSINGNOTES: ALERT AND ORIENTATED x4 1 UNIT PRBCs INFUSED W/O A PROBLEM bLOOD PRESSURE NORM IS IN THE LOW 80'S SYST gIVING mORPHINE 4 MG q 2 HOURS AND NO CHANGE IN THE BLOOD PPRESSURE...MADE CLARIFIER OPERATOR RAFFI AWARE FFP STARTED LAST NIGHT AND WITHIN 15 MIN HER TEMP WENT FROM 98.3 ORALLY TO 102.9 ORALLY AND SHE C/0 OF HADACHE NO CHANGE IN HER bp OR hr SKYLAKYRIE Aguirre MADE AWARE TYLENOL GIVEN AND BENADRLY, UATAKEN TO LAB PINK TOP LAB DRAWN AND THE WHOLE UP OF FFP AND NS AND TUBING TO THE LAB HER B/P DROPPED TO 54/24 HR 106 RESP 18 REMAINS ALERT AND ORIENTATED 4 ASKIG FOR MORPHINE NOT GIVEN D/T LOW B/P BLOOD PRESSURE 70/30 HR89 SHE REQUESTING MORPHINE BUT NOT GIVEN SHE IS AWARE I AM NOT GOING TO GIVE MORPHINE WITH THAT LOW A bp,
[2022-09-27] MEDS: MORPHINE SULFATE INJ 2 MG/ML DISP.SYRIN IV PRN ×4 (06:59→21:07)
--- NOTE | 2022-09-27 07:30 | NUR ---
JEANETTE Noland RECEIVED PT IN BED, ASLEEP AT THIS, BUT REPLIES WHEN SPOKEN TO. NO S/SX OF PAIN/DISCOMFORT AT THIS TIME. RESP EVEN AND UNLABORED, ON ROOM AIR. PIV ACCESS ON LEFT HAND IV ACCESS WELL TOLERATED. L NEPHROSTOMY TUBE BAG IN PLACED, PATENT, DRAINING CLEAR YELLOW URINE. ANYLA HUGGER IN PLACED, NO BODY RIGORS NOTED AT THIS TIME. SAFETY PRECAUTION IMPLEMENTED. BED LOCKED AND IN LOWEST POSITION. CALL LIGHT WITHIN EASY REACH. Addendum: 09/27/22 at 0743 by LORNA DIAZ RN JEANETTE HAMMOND RECEIVED PT IN BED, AWAKE, VERBALLY RESPONSIVE, NO S/SX OF PAIN/DISCOMFORT AT THIS TIME. RESP EVEN AND UNLABORED, ON ROOM AIR. MIDLINE ON RIGHT UPPER ARM ON LEFT HAND, FLUSHING WELL. L NEPHROSTOMY TUBE BAG IN PLACED, PATENT, DRAINING CLEAR YELLOW URINE. NAYLA HUGGER IN PLACED, NO BODY RIGORS NOTED AT THIS TIME. SAFETY PRECAUTION IMPLEMENTED. BED LOCKED AND IN LOWEST POSITION. CALL LIGHT WITHIN EASY REACH.
[2022-09-27] MEDS: ONDANSETRON HCL/PF 4 MG/2 ML VIAL IVP PRN (07:50)
[2022-09-27] MEDS: PROSOURCE / PROSTAT (PYXIS) 30 ML UDC GT SCH ×2 (09:00→16:20)
--- NOTE | 2022-09-27 09:10 | NUR ---
RN NOTE DR. JAMAAL Pagan NOTIFIED AT 0846 REGARDING PATIENT VOMITING, ZOFRAN GIVEN AT 0750,SYMPTOMS HAVE NOT IMPROVED, PATIENT SHAKING WITH HR 130. WAITING FOR RESPONSE.
[2022-09-27] MEDS ORDERED: MEPERIDINE25 MG SYR 25 MG/ML VIAL IV ONE (09:30)
--- NOTE | 2022-09-27 09:37 | NUR ---
RN NOTE RECEIVED CALL FROM DOCTOR JAMAAL Lee REQUESTING TO PUT AN ORDER FOR DEMEROL 12.5 MG IV ONE TIME FOR RIGORS AND AN ORDER FOR RADIOLOGY TO REPLACE NEPHROSTOMY. ORDERS IN PLACED,PHARMACY CALLED TO VERIFY IV MEDICATION.
--- NOTE | 2022-09-27 12:30 | NUR ---
DR. WELLER ORDERED TORADOL 15 MG Q6 PRN FOR PATIENT. DR. WELLER SPOKED WITH PATIENT REGARDING THE SHIVERING AND FEVER ID WILL SEE THE PATIENT BY DR. WELLER'S REQUEST.
[2022-09-27] MEDS ORDERED: KETOROLAC TROMETHAMINE INJ 30 MG/ML VIAL IM PRN (13:00)
[2022-09-27] MEDS: diphenhydrAMINE HCL 50 MG/ML VIAL IV PRN (14:36)
--- NOTE | 2022-09-27 15:00 | NUR ---
HGB 6.8 DR WELLER NOTIFIED, HE ORDERED 1 UNIT RBC
--- NOTE | 2022-09-27 18:10 | NUR ---
LAB CALLED THAT 1 UNIT RBC IS READY, BUT SINCE PATIENT HAD A ALLERGIC REACTION LAST NIGHT DURING THE TRANSFUSION AND TRANSFUSION WAS STOPPED, CHARGE NURSE INFORMED AND SHE SAID INDORSE THE TRANSFUSION TO THE DELIVERY RECRUITER NURSE SO CAN MONITOR PATIENT MORE CLOSELY SINCE IS OUR GARCIA TIME NOW AND WE HAVE TO PASS MEDS AND GIVE REPORT.
--- NOTE | 2022-09-27 19:30 | NUR ---
RN NOTE RECEIVED PT IN BED, ASLEEP AT THIS TIME. NO S/SX OF PAIN/DISCOMFORT AT THIS TIME. RESP EVEN AND UNLABORED, ON ROOM AIR. PT ATTACHED TO EXTERNAL THEORETICAL PHYSICIST READING ST HR 115.IV ACCESS GUERO MIDLINE PATENT FLUSHES WELL INFUSING LR + 40 MEQ KCL AT 125ML/HR, WELL TOLERATED. L NEPHROSTOMY TUBE BAG IN PLACED, PATENT, DRAINING CLEAR YELLOW URINE. NAYLA HUGGER IN PLACED, NO BODY RIGORS NOTED AT THIS TIME. SAFETY PRECAUTION IMPLEMENTED. BED LOCKED AND IN LOWEST POSITION. CALL LIGHT WITHIN EASY REACH. FOR BLOOD TRANSFUSION
--- NOTE | 2022-09-27 22:15 | NUR ---
RN NOTES BLOOD TRANSFUSION STARTED VITAL SIGNS TAKEN AND RECORDED. AFEBRILE. WILL MONITOR PATIENT CLOSELY FOR ANY TRANSFUSION REACTION.
[2022-09-28] VITALS (8 sets, daily range): BP systolic 80–106; BP diastolic 41–55
[2022-09-28] MEDS: MORPHINE SULFATE INJ 2 MG/ML DISP.SYRIN IV PRN ×5 (00:42→20:33)
[2022-09-28] MEDS: LR IV SCH ×3 (00:54→20:42)
[2022-09-28] MEDS: POTASSIUM CHLORIDE IV SCH ×3 (00:54→20:42)
[2022-09-28] MEDS: MEROPENEM 1 G in IV NS 0.9% 100 ML IV SCH ×2 (02:20→12:54)
--- NOTE | 2022-09-28 06:55 | NUR ---
RN NOTES PATIENT REMAINS STABLE NO SIGNIFICANT CHANGES THIS SHIFT. ALL DUE MEDS GIVEN ORDERED. S/P POST BLOOD TRANSFUSION NO BLOOD TRANSFUSION REACTION NOTED. WILL ENdorsed to morning shift
--- NOTE | 2022-09-28 07:56 | NUR ---
INSURANCE VERIFICATION SPECIALIST OPENING NOTE Patient in bed, awake. A/O x 4, able to make needs known. On room air, no SOB or s/s of distress noted. IV access on GUERO midline infusing LR with 40 meq KCl at 125 ml/hr. On external monitoring showing SR. Safety precautions in place: bed in low, locked position; siderails up x2; call light within reach. Will continue to monitor. Addendum: 09/28/22 at 1434 by RUPA DOHERTY RN ADD: Nephrostomy tube in place draining to a yellow colored urine. Addendum: 09/28/22 at 1546 by RUPA DOHERTY RN ADD: Left nephrostomy tube in place.
--- NOTE | 2022-09-28 08:00 | NUR ---
RN NOTE Per shift supervisor melting nurse report, patient received transfusion last 09/26/22 for FFP but had an allergic reaction to the transfusion, transfusion was stopped. Confirmed with Soon, propellant charge loader nurse. Welocalize system still showing transfusion being given, but transfusion already stopped.
[2022-09-28] MEDS: PROSOURCE / PROSTAT (PYXIS) 30 ML UDC GT SCH ×2 (09:00→17:00)
[2022-09-28] MEDS ORDERED: VANCOMYCIN 500 MG in IV D5W 100ml IV SCH (12:00)
[2022-09-28] MEDS: ACETAMINOPHEN 325 MG TABLET PO PRN (14:08)
--- NOTE | 2022-09-28 14:08 | NUR ---
RN NOTE Patient's temp is 101.8 F, PRN Tylenol 650 mg given and cooling measures provided. Will continue to monitor.
[2022-09-28 14:46] LABS: BASOPHILS % (AUTO) 0.4 % (0.0-2.0); EOSINOPHILS % (AUTO) 4.6 % (0.0-6.0); HEMATOCRIT 30 % (33-45); HEMOGLOBIN 9.8 g/dL (11.5-14.8); LYMPHOCYTES # (AUTO) 0.4 K/uL (0.8-4.8); LYMPHOCYTES % (AUTO) 7.4 % (20.0-44.0); MEAN CORPUSCULAR HGB CONC 33 g/dl (31.0-36.0); MEAN CORPUSCULAR VOLUME 87 fL (82-100); MONOCYTES # (AUTO) 0.2 K/uL (0.1-1.30); NEUTROPHILS # (AUTO) 4.5 K/uL (1.8-8.9); NEUTROPHILS % (AUTO) 83.6 % (43.0-81.0); PLATELET COUNT (AUTO) 228 K/uL (150-450); RED BLOOD CELL COUNT(AUTO) 3.42 MIL/uL (4.0-5.2); WHITE BLOOD COUNT (AUTO) 5.4 K/uL (4.3-11.0)
[2022-09-28 14:57] LABS: CREATININE 1.2 mg/dL (0.6-1.3); MAGNESIUM 1.7 mg/dL (1.8-2.4); PHOSPHORUS 4.1 mg/dL (2.5-4.9); POTASSIUM 3.5 mmol/L (3.5-5.1)
[2022-09-28 16:18] LABS: OCCULT BLOOD STOOL NEGATIVE (NEGATIVE)
--- NOTE | 2022-09-28 16:47 | NUR ---
RN NOTE Latest temp is 98.2.
--- NOTE | 2022-09-28 18:52 | NUR ---
NITRATOR OPERATOR CLOSING NOTE Patient in bed, resting. A/O x 4, able to make needs known. Stable on room air, no SOB or s/s of distress noted. IV access on GUERO midline infusing LR with 40 meq KCl at 125 ml/hr. On external monitoring showing SR, HR 88. Left nephrostomy tube in place draining to a yellow colored urine with an output of 550 cc. All needs attended to. Due meds given. Safety precautions in place: bed in low, locked position; siderails up x2; call light within reach. Will endorse to marketing technology coordinator nurse for LEONARDA.
[2022-09-29] VITALS (7 sets, daily range): BP systolic 90–120; BP diastolic 32–53
[2022-09-29] MEDS: MEROPENEM 1 G in IV NS 0.9% 100 ML IV SCH ×2 (00:38→13:32)
[2022-09-29] MEDS: MORPHINE SULFATE INJ 2 MG/ML DISP.SYRIN IV PRN ×8 (00:39→22:11)
[2022-09-29] MEDS: ONDANSETRON HCL/PF 4 MG/2 ML VIAL IVP PRN ×2 (00:57→18:07)
[2022-09-29] MEDS: ACETAMINOPHEN 325 MG TABLET PO PRN (04:29)
[2022-09-29] MEDS: LR IV SCH ×2 (04:55→14:33)
[2022-09-29] MEDS: POTASSIUM CHLORIDE IV SCH ×2 (04:55→14:33)
[2022-09-29 07:15] LABS: CALCIUM, SERUM 8.9 mg/dL (8.5-10.1); CREATININE 0.8 mg/dL (0.6-1.3); MAGNESIUM 1.6 mg/dL (1.8-2.4); POTASSIUM 3.9 mmol/L (3.5-5.1)
[2022-09-29 07:22] LABS: BASOPHILS % (AUTO) 0.3 % (0.0-2.0); EOSINOPHILS % (AUTO) 2.9 % (0.0-6.0); HEMATOCRIT 30 % (33-45); HEMOGLOBIN 9.8 g/dL (11.5-14.8); LYMPHOCYTES # (AUTO) 0.5 K/uL (0.8-4.8); LYMPHOCYTES % (AUTO) 10.3 % (20.0-44.0); MEAN CORPUSCULAR HGB CONC 33 g/dl (31.0-36.0); MEAN CORPUSCULAR VOLUME 88 fL (82-100); MONOCYTES # (AUTO) 0.2 K/uL (0.1-1.30); MONOCYTES % (AUTO) 4.9 % (2.0-12.0); NEUTROPHILS # (AUTO) 4.1 K/uL (1.8-8.9); NEUTROPHILS % (AUTO) 81.6 % (43.0-81.0); PLATELET COUNT (AUTO) 183 K/uL (150-450); RED BLOOD CELL COUNT(AUTO) 3.41 MIL/uL (4.0-5.2); WHITE BLOOD COUNT (AUTO) 5.1 K/uL (4.3-11.0)
--- NOTE | 2022-09-29 07:28 | NUR ---
RN CLOSING NOTE A/OX4. ROOM AIR. C/O PAIN IN BACK, NECK ND LEFT FLANK. PRN MORPHINE GIVEN THROUGHOUT SHIFT. BP SOFT. SINUS RHTYHMM. SINUS TACHYCARDIA. HR 150S, D/T EPISODE OF EMESIS X2. PRN ZOFRAN GIVEN. TMAX 99.9. COOLING MEASURES AND TYLENOL GIVEN. LEFT NEPHROSTOMY TUBE OUTPUT 800ML YELLOW, LEAKING. INCONTINENT CARE DONE. IVF AND ABX GIVEN ORDERED. WOUND CARE DONE. PENDING COLLECTION FOR AFB STOOL AND AFB SPUTUM.
--- NOTE | 2022-09-29 07:54 | NUR ---
RN OPENING NOTE PATIENT RECEIVED IN BED. A/OX4. ON ROOM AIR WITH NO S/S OF RESPIRATORY DISTRESS OR SOB. C/O PAIN IN BACK OF HEAD. IV ACCESS GUERO MIDLINE RUNNING LR WITH 40 MEQ KCL RUNNING AT 125 ML/HR. LEFT NEPHROSTOMY TUBE PRESENT WITH LEAK. WILL CONTINUE TO MONITOR.
[2022-09-29] MEDS: PROSOURCE / PROSTAT (PYXIS) 30 ML UDC GT SCH ×4 (08:11→16:48)
--- NOTE | 2022-09-29 08:13 | NUR ---
RN NOTES ON PROSTAT PATIENT REFUSED.
[2022-09-29] MEDS ORDERED: MAGNESIUM OXIDE 400 MG TABLET PO ONE (11:00)
[2022-09-29] MEDS: diphenhydrAMINE HCL 50 MG/ML VIAL IV PRN ×2 (11:13→21:36)
--- NOTE | 2022-09-29 13:15 | NUR ---
RN NOTES ON NEPHROSTOMY TUBE CHANGE PATIENT SIGNED CONSENT TO HAVE NEPHROSTOMY TUBE CHANGED TODAY.
--- NOTE | 2022-09-29 13:30 | NUR ---
RN NOTES ON [facility] APPROVED USE OF MEDS SCHEDULED FOR TOMORROW, TODAY INSTEAD.
[2022-09-29] MEDS: PANTOPRAZOLE 40 MG TABLET.DR PO SCH ×2 (15:00→15:11)
[2022-09-29] MEDS ORDERED: PANTOPRAZOLE 40 MG TABLET.DR PO SCH (15:00)
--- NOTE | 2022-09-29 15:51 | NUR ---
RN NOTES FOR PROTONIX PATIENT INITIALLY ASLEEP. WHEN I RETURNED, PATIENT REFUSED MEDS.
--- NOTE | 2022-09-29 16:48 | NUR ---
RN NOTES FOR PROSTAT PATIENT REFUSED.
--- NOTE | 2022-09-29 17:09 | NUR ---
RN NOTES ON NEPHROSTOMY LEAK POSSIBLE LEAK IN BAG. RADIOLOGY WILL NOT BE AVAILABLE TO CHANGE NEPHROSTOMY TUBE UNTIL TOMORROW.
[2022-09-29] MEDS: IV NS 0.9% 250 ML IV PRN (19:00)
--- NOTE | 2022-09-29 19:46 | NUR ---
RN CLOSING NOTE PATIENT IN BED ASLEEP. ALERT AND ORIENTED X4. ON ROOM AIR WITH NO S/S OF RESPIRATORY DISTRESS OR SOB. ON TELE MONITOR READING ST 129. IV ACCESS GUERO MIDLINE RUNNING LR WITH 40 MEQ KCL RUNNING AT 125 ML/HR. LEFT NEPHROSTOMY TUBE PRESENT WITH LEAK. WILL HAVE NEPHROSTOMY TUBE CHANGE TOMORROW. PATIENT STATES SHE IS COLD. WARMING MEASURES TAKEN. EMESIS OF 100 ML BEFORE END OF DAY. SAFETY PRECAUTIONS IN PLACE WITH BED IN LOWEST AND LOCKED POSITION, SIDE RAILS UP X2, BEDSIDE TABLE AND CALL LIGHT WITHIN REACH. WILL ENDORSE TO ONCOMING SHIFT FOR LEONARDA.
--- NOTE | 2022-09-29 19:52 | NUR ---
CONTINUITY OF CARE Patient in bed, awake Alert Oriented x4. During rounds, patient refused skin assessment. Unable to check nephrostomy tube site, patient lying on her back. Education on skin injury prevention, patient verbalized understanding but still refused to repositioned at this time, voiced out back pain and wants to get Morphine right away. Sinus Tach HR 130's in the Tele monitor. Denies chest pain. Will cont to monitor patient.
--- NOTE | 2022-09-29 20:06 | NUR ---
HEADACHE/BACK PAIN Patient in bed, emesis clear light yellow, not due for the next Anti nausea medication. C/o headache, back pain 10/10. Given Morphine IV, will reassess pain level.
[2022-09-29] MEDS: FAMOTIDINE (20 MG) 20 MG TABLET PO SCH (21:33)
--- NOTE | 2022-09-29 21:40 | NUR ---
BODY RASH Patient awake, incontinent/skin care provided. Patient c/o itching all over her body, body rash. Given Benadryl IV. Will cont to monitor.
--- NOTE | 2022-09-29 22:14 | NUR ---
BACK,LEG,RIGHT FLANK PAIN Skin care rendered, turned and repositioned. Patient focused on pain medication, persistent back pain. C/o leg and right flank pain 10/10. Given Morphine IV, will reassess pain level. Patient stated, she wants Morphine in the next 2 hours. Education on Morphine Indication and possible side effect provided to patient, verbalized understanding.
[2022-09-30] VITALS: BP 100/37
[2022-09-30] MEDS: LR IV SCH ×3 (00:15→21:24)
[2022-09-30] MEDS: POTASSIUM CHLORIDE IV SCH ×3 (00:15→21:24)
[2022-09-30] MEDS: MORPHINE SULFATE INJ 2 MG/ML DISP.SYRIN IV PRN ×7 (00:25→22:48)
[2022-09-30] MEDS: MEROPENEM 1 G in IV NS 0.9% 100 ML IV SCH ×2 (01:22→12:18)
[2022-09-30 04:00] VITALS: BP 92/43
--- NOTE | 2022-09-30 06:44 | NUR ---
END OF SHIFT REPORT Patient in bed, Alert Oriented x4. Oxygen sat high 90's in RA. Sinus Rhythm in the Tele monitor HR 80's. GUERO Midline cath intact. IV KCL infusing, on IV abx. Temp max 99.9F during the night. Back, leg, left flank pain managed by IV Morphine. N/V improved with IV Zofran. Easily agitated, angry behavior to staff during care. Refused turning and repositioning at times, declined education on skin injury prevention. Sacrum and coccyx multiple open skin. Wound consult for new skin breakdown. Dry cough with no phlegm as no sputum specimen to send for test. Refused am lab. Patient focused to get pain medication only. Uncooperative with treatment. Will endorse to oncoming RN.
--- NOTE | 2022-09-30 07:17 | NUR ---
RN OPENING NOTE PATIENT RECEIVED IN BED AWAKE. ALERT AND ORIENTED X4. ON ROOM AIR WITH NO S/S OF RESPIRATORY DISTRESS OR SOB. IV ACCESS GUERO MIDLINE RUNNING LR WITH 40 MEQ KCL RUNNING AT 125 ML/HR. LEFT NEPHROSTOMY TUBE PRESENT WITH LEAK. SAFETY PRECAUTIONS IN PLACE WITH BED IN LOWEST AND LOCKED POSITION, SIDE RAILS UP X2, BEDSIDE TABLE AND CALL LIGHT WITHIN REACH. WILL CONTINUE TO MONITOR.
[2022-09-30 08:00] VITALS: BP 144/84
[2022-09-30] MEDS: PANTOPRAZOLE 40 MG TABLET.DR PO SCH ×2 (08:20→08:34)
[2022-09-30] MEDS: FAMOTIDINE (20 MG) 20 MG TABLET PO SCH ×3 (08:35→21:24)
[2022-09-30] MEDS: PROSOURCE / PROSTAT (PYXIS) 30 ML UDC GT SCH ×2 (08:38→17:00)
--- NOTE | 2022-09-30 08:38 | NUR ---
PATIENT REFUSED PROSTAT
[2022-09-30] MEDS: ONDANSETRON HCL/PF 4 MG/2 ML VIAL IVP PRN (08:54)
--- NOTE | 2022-09-30 10:07 | NUR ---
WOUND CARE CONSULT/FOLLOW UP: PT SEEN FOR SACRAL DEEP TISSUE INJURY WHICH REMAINS INTACT AND WAS NOTED TO BE PRESENT ON ADMISSION. PT ALSO HAS REDNESS TO PERINEUM PER NURSING REPORT(PT REFUSED ASSESSMENT OF PERINEUM AND STATES WAS TOO COLD). PT NOTED TO HAVE SOME MOISTURES ASSOCIATED SKIN DAMAGE TO BUTTOCKS. RECOMMENDATIONS MADE FOR SKIN CARE AND PROTECTION. DISCUSSED WITH NURSING STAFF. MD IN AGREEMENT WITH PLAN OF CARE.
--- NOTE | 2022-09-30 10:41 | NUR ---
DRAINAGE BAG LEAKING,CHANGED AND DRAINING TO RAFAELA COLOURED URINE.
--- NOTE | 2022-09-30 10:53 | NUR ---
RN NOTES ON NEPHROSTOMY TUBE PATIENT DID NOT WANT NEPHROSTOMY TUBE CHANGED. CHARGE NURSE LILLIE CHANGED LEAKY BAG.
[2022-09-30] MEDS ORDERED: LORAZEPAM 1 MG TABLET PO PRN (11:00)
[2022-09-30] MEDS ORDERED: LORAZEPAM 0.5 MG TABLET PO PRN (11:30)
[2022-09-30 12:00] VITALS: BP 126/60
[2022-09-30] MEDS: GABAPENTIN 300 MG CAPSULE PO SCH ×2 (12:20→19:26)
--- NOTE | 2022-09-30 14:21 | NUR ---
STOOL COLLECTED FOR AFB CX.
[2022-09-30] MEDS: IV NS 0.9% 250 ML IV PRN (14:41)
[2022-09-30 16:00] VITALS: BP 100/58
[2022-09-30] MEDS: CLOTRIMAZOLE 1% 15 GM TUBE TP SCH (17:00)
--- NOTE | 2022-09-30 19:02 | NUR ---
PT REFUSED PROSTAT
--- NOTE | 2022-09-30 19:30 | NUR ---
ASPHALT SCREED OPERATOR OPENING NOTE RECEIVED PT IN BED AWAKE. ALERT AND ORIENTED X4. ON ROOM AIR WITH NO S/S OF RESPIRATORY DISTRESS OR SOB. BREATHING EVEN AND UNLABORED. IV ACCESS GUERO MIDLINE RUNNING LR WITH 40 MEQ KCL RUNNING AT 125 ML/HR. LEFT NEPHROSTOMY TUBE PRESENT. BAG INTACT WITH NO LEAKING. SAFETY PRECAUTIONS IN PLACE WITH BED IN LOWEST AND LOCKED POSITION, SIDE RAILS UP X2, BEDSIDE TABLE AND CALL LIGHT WITHIN REACH. WILL CONTINUE TO MONITOR AND ASSIST..
[2022-09-30 20:00] VITALS: BP 92/45
--- NOTE | 2022-09-30 20:12 | NUR ---
RN CLOSING NOTE PATIENT IN BED SLEEPING. ALERT AND ORIENTED X4. ON ROOM AIR WITH NO S/S OF RESPIRATORY DISTRESS OR SOB. BREATHING EVEN AND UNLABORED. IV ACCESS GUERO MIDLINE RUNNING LR WITH 40 MEQ KCL RUNNING AT 125 ML/HR. LEFT NEPHROSTOMY TUBE PRESENT. BAG INTACT WITH NO LEAKINIG. SAFETY PRECAUTIONS IN PLACE WITH BED IN LOWEST AND LOCKED POSITION, SIDE RAILS UP X2, BEDSIDE TABLE AND CALL LIGHT WITHIN REACH. WILL ENDORSE TO ONCOMING SHIFT FOR LEONARDA.
[2022-09-30] MEDS: MIRTAZAPINE 15 MG TABLET PO SCH (21:23)
[2022-10-01] VITALS: BP 94/46
[2022-10-01] MEDS: ACETAMINOPHEN 325 MG TABLET PO PRN (01:05)
[2022-10-01] MEDS: MEROPENEM 1 G in IV NS 0.9% 100 ML IV SCH ×2 (01:05→13:53)
[2022-10-01] MEDS: MORPHINE SULFATE INJ 2 MG/ML DISP.SYRIN IV PRN ×6 (01:05→21:16)
--- NOTE | 2022-10-01 01:20 | NUR ---
RN NOTE PT TEMP 99.7 F. PROVIDED COOLING MEASURES AND PRESCRIBED PRN TYLENOL. WILL REASSESSES IN 1 HR.
--- NOTE | 2022-10-01 02:05 | NUR ---
RN NOTE PT TEMP RECHECKED: 102.8 F. COOLING MEASURES MAINTAINED. PT DENIES SOB OR CHEST PAIN BUT C/O L THIGH SWELLING.
--- NOTE | 2022-10-01 03:16 | NUR ---
RN NOTE PT TEMP RECHECKED: 98.9 F. ENCOURAGED PT TO HYDRATE. WILL CONTINUE TO MONITOR.
--- NOTE | 2022-10-01 03:32 | NUR ---
RN NOTE PT REQUESTING BIPAP TO BE PUT BACK. RT MADE AWARE.
[2022-10-01 04:00] VITALS: BP 100/46
[2022-10-01] MEDS: LR IV SCH ×3 (06:50→16:42)
[2022-10-01] MEDS: POTASSIUM CHLORIDE IV SCH ×3 (06:50→16:42)
[2022-10-01] MEDS: PANTOPRAZOLE 40 MG TABLET.DR PO SCH ×2 (07:30→08:40)
--- NOTE | 2022-10-01 07:43 | NUR ---
[employer] JOINTER CLOSING NOTE PT RESTING IN BED AT THIS TIME. A/O X4. STABLE ON ROOM AIR WITH NO S/S OF RESPIRATORY DISTRESS OR SOB. BREATHING EVEN AND UNLABORED. IV ACCESS GUERO MIDLINE RUNNING LR WITH 40 MEQ KCL RUNNING AT 125 ML/HR. LEFT NEPHROSTOMY TUBE PRESENT, TOTAL OF 1225 ML OUTPUT. BAG INTACT WITH NO LEAKING. ALL CARE PROVIDED AND MEDS TOLERATED WELL. WOUND CARE PERFORMED, TURNED AND REPOSITIONED THROUGHOUT SHIFT. SAFETY PRECAUTIONS MAINTAINED: BED IN LOWEST AND LOCKED POSITION, SIDE RAILS UP X2, BEDSIDE TABLE AND CALL LIGHT WITHIN REACH. WILL ENDORSE LEONARDA TO DAY SHIFT NURSE.
--- NOTE | 2022-10-01 07:44 | NUR ---
RN OPENING NOTE PATIENT RECEIVED IN BED RESTING. ALERT AND ORIENTED X4. ON ROOM AIR WITH NO S/S OF RESPIRATORY DISTRESS OR SOB. BREATHING EVEN AND UNLABORED. ON TELE MONITOR. IV ACCESS GUERO MIDLINE RUNNING LR WITH 40 MEQ KCL RUNNING AT 125 ML/HR. LEFT NEPHROSTOMY TUBE PRESENT AND INTACT. SAFETY PRECAUTIONS IN PLACE WITH BED IN LOWEST AND LOCKED POSITION, SIDE RAILS UP X2, BEDSIDE TABLE AND CALL LIGHT WITHIN REACH. WILL CONTINUE TO MONITOR.
[2022-10-01 08:00] VITALS: BP 116/58
[2022-10-01] MEDS: QUETIAPINE FUMARATE 100 MG TABLET PO SCH (08:39)
[2022-10-01] MEDS: GABAPENTIN 300 MG CAPSULE PO SCH ×4 (08:39→17:37)
[2022-10-01] MEDS: ASCORBIC ACID 500 MG TABLET PO SCH ×2 (08:40→09:00)
[2022-10-01] MEDS: FAMOTIDINE (20 MG) 20 MG TABLET PO SCH ×3 (08:40→21:15)
[2022-10-01] MEDS: ZINC SULFATE 220 MG CAPSULE PO SCH ×2 (08:40→09:00)
[2022-10-01] MEDS: MULTIVITAMINS,THERAGRAN 1 UDTAB TABLET PO SCH ×2 (08:41→09:00)
[2022-10-01] MEDS: DOCUSATE SODIUM 250 MG CAPSULE PO SCH ×2 (08:43→09:00)
[2022-10-01] MEDS ORDERED: FAMOTIDINE (20 MG) 20 MG TABLET PO SCH (09:00)
[2022-10-01] MEDS: PROSOURCE / PROSTAT (PYXIS) 30 ML UDC GT SCH ×2 (09:00→17:00)
[2022-10-01] MEDS: CLOTRIMAZOLE 1% 15 GM TUBE TP SCH ×2 (09:06→17:37)
--- NOTE | 2022-10-01 09:06 | NUR ---
PATIENT REFUSED PROSTAT
--- NOTE | 2022-10-01 10:00 | NUR ---
PATIENT REFUSED ALL MORNING MEDS EXCEPT FOR QUETIAPINE AND GABAPENTIN.
[2022-10-01 12:00] VITALS: BP 116/58
--- NOTE | 2022-10-01 12:10 | NUR ---
PATIENT REFUSED 1200 VITALS
--- NOTE | 2022-10-01 12:10 | NUR ---
PATIENT REFUSED 1200 VITALS
--- NOTE | 2022-10-01 12:10 | NUR ---
PATIENT REFUSED 1200 VITALS Addendum: 10/01/22 at 1855 by LOUIS LADD RN Amended: Links added.
--- NOTE | 2022-10-01 15:43 | NUR ---
PATIENT REFUSED GABAPENTIN.
--- NOTE | 2022-10-01 15:47 | NUR ---
PATIENT REFUSED BLOOD DRAW. DR JAFFE NOTIFIED. AM CBC, BMP ORDERED. PSYCH CONSULT ORDERED.
[2022-10-01 16:00] VITALS: BP 94/43
--- NOTE | 2022-10-01 16:39 | NUR ---
LR WITH POTASSIUM 40 MEQ NOT ADMINISTERED BAG FROM PM SHIFT HAS NOT FINISHED.
--- NOTE | 2022-10-01 17:38 | NUR ---
PT REFUSED PROSTAT
--- NOTE | 2022-10-01 19:57 | NUR ---
RN CLOSING NOTE PATIENT IN BED SLEEPING. RESPONDS TO VERBAL STIMULI. ON ROOM AIR WITH NO S/S OF RESPIRATORY DISTRESS OR SOB. BREATHING EVEN AND UNLABORED. ON TELE MONITOR READING SR. IV ACCESS GUERO MIDLINE RUNNING LR WITH 40 MEQ KCL RUNNING AT 125 ML/HR. LEFT NEPHROSTOMY TUBE PRESENT AND INTACT. PAIN MANAGEMENT AND SUPPORT PROVIDED. PATIENT REFUSED AM LABS AND MOST MEDS. SAFETY PRECAUTIONS IN PLACE WITH BED IN LOWEST AND LOCKED POSITION, SIDE RAILS UP X2, BEDSIDE TABLE AND CALL LIGHT WITHIN REACH. WILL ENDORSE TO ONCOMING SHIFT.
[2022-10-01 20:00] VITALS: BP 85/45
--- NOTE | 2022-10-01 21:02 | NUR ---
RN OPENING NOTE PATIENT RECEIVED IN BED ASLEEP ON MODERATE HIGH BACK REST POSITION. ALERT AND ORIENTED X4. ON ROOM AIR WITH NO S/S OF RESPIRATORY DISTRESS OR SOB. BREATHING EVEN AND UNLABORED. WITH IV ACCESS GUERO MIDLINE RUNNING LR WITH 40 MEQ KCL RUNNING AT 125 ML/HR. LEFT NEPHROSTOMY TUBE PRESENT AND INTACT NOTED URINE OUTPUT.NO CHEST PAIN OR DISTRESS NOTED AT THIS TIME. KEPT BED ON LOWER LOCK POSITION, KEPT SIDE RAILS UP X 3 ALL THE TIME. KEPT CALL LIGHT WITHIN AT REACH. PAIN MANAGEMENT MAINTAINED. WILL CONTINUE TO MONITOR FOR LEONARDA.
[2022-10-01] MEDS: MIRTAZAPINE 15 MG TABLET PO SCH (21:16)
[2022-10-02] VITALS (7 sets, daily range): BP systolic 55–96; BP diastolic 35–55
[2022-10-02] MEDS: LR IV SCH ×2 (00:55→07:53)
[2022-10-02] MEDS: POTASSIUM CHLORIDE IV SCH ×2 (00:55→07:53)
[2022-10-02] MEDS: MORPHINE SULFATE INJ 2 MG/ML DISP.SYRIN IV PRN ×2 (00:57→04:26)
[2022-10-02] MEDS: MEROPENEM 1 G in IV NS 0.9% 100 ML IV SCH ×2 (01:00→13:18)
[2022-10-02] MEDS: ACETAMINOPHEN 325 MG TABLET PO PRN (03:44)
--- NOTE | 2022-10-02 03:51 | NUR ---
RN NOTES PATIENT NOTED ELEVATED BODY TEMPERATURE OF 102F. TYLENOL 650MG ORAL GIVEN AND TOLERATED BY THE PATIENT. WILL CONTINUE TO MONITOR.
[2022-10-02 06:17] LABS: BASOPHILS % (AUTO) 0.8 % (0.0-2.0); EOSINOPHILS % (AUTO) 5.7 % (0.0-6.0); HEMATOCRIT 30 % (33-45); HEMOGLOBIN 9.5 g/dL (11.5-14.8); LYMPHOCYTES % (AUTO) 24.9 % (20.0-44.0); MEAN CORPUSCULAR HGB CONC 32 g/dl (31.0-36.0); MEAN CORPUSCULAR VOLUME 89 fL (82-100); MONOCYTES # (AUTO) 0.4 K/uL (0.1-1.30); MONOCYTES % (AUTO) 9.3 % (2.0-12.0); NEUTROPHILS # (AUTO) 2.3 K/uL (1.8-8.9); NEUTROPHILS % (AUTO) 59.3 % (43.0-81.0); PLATELET COUNT (AUTO) 137 K/uL (150-450); RED BLOOD CELL COUNT(AUTO) 3.34 MIL/uL (4.0-5.2); WHITE BLOOD COUNT (AUTO) 3.9 K/uL (4.3-11.0)
--- NOTE | 2022-10-02 06:25 | NUR ---
RN MS CLOSING NOTES PATIENT IS IN BED, ON MODERATE HIGH BACK REST POSITION. A/O X 4 WITH EPISODE OF YELLING TO STAFF. ON ROOM AIR SATURATING WELL. WITH IV ACCESS AT GUERO ML WITH KCL 40MEQS AT 125ML/HR INFUSING WELL. ON REGULAR DIET NO ASPIRATION NOTED AT THIS TIME. NO COMPLAIN OF CHEST PAIN OR DISCOMFORT AT THIS TIME. ENCOURAGE TO INCREASED FLUID INTAKE TOLERATED. WITH NEPHROSTOMY TUBE CONNECTED TO URINE BAG NOTED URINE OUTPUT. PM CARE RENDERED, KEPT BED ON LOWER LOCKED POSITION, KEPT SIDE RAILS UP X 2 ALL THE TIME, KEPT CALL LIGHT WITHIN AT REACH. ALL DUE MEDICATIONS GIVEN AND ALL NEEDS ATTENDED. PM CARE RENDERED. PAIN MANAGEMENT MAINTAINED. WILL ENDORSED TO AM SHIFT FOR LEONARDA.
[2022-10-02 07:00] LABS: CALCIUM, SERUM 9.8 mg/dL (8.5-10.1); CREATININE 0.8 mg/dL (0.6-1.3); POTASSIUM 4.9 mmol/L (3.5-5.1)
--- NOTE | 2022-10-02 07:10 | NUR ---
RN OPENING NOTE PATIENT RECEIVED IN BED, ALERT AND ORIENTED X 3-4. ON ROOM AIR WITH NO S/S OF RESPIRATORY DISTRESS OR SOB. BREATHING EVEN AND UNLABORED. ON TELE MONITOR. IV ACCESS GUERO MIDLINE RUNNING LR WITH 40 MEQ KCL RUNNING AT 125 ML/HR. LEFT NEPHROSTOMY TUBE PRESENT AND INTACT. SAFETY PRECAUTIONS IN PLACE WITH BED IN LOWEST AND LOCKED POSITION, SIDE RAILS UP X2, BEDSIDE TABLE AND CALL LIGHT WITHIN REACH. WILL CONTINUE TO MONITOR.
[2022-10-02] MEDS: PANTOPRAZOLE 40 MG TABLET.DR PO SCH (07:43)
[2022-10-02] MEDS: PROSOURCE / PROSTAT (PYXIS) 30 ML UDC GT SCH ×2 (08:01→17:05)
[2022-10-02] MEDS: CLOTRIMAZOLE 1% 15 GM TUBE TP SCH ×2 (08:02→17:05)
[2022-10-02] MEDS: ZINC SULFATE 220 MG CAPSULE PO SCH (09:00)
[2022-10-02] MEDS: MULTIVITAMINS,THERAGRAN 1 UDTAB TABLET PO SCH (09:00)
[2022-10-02] MEDS: DOCUSATE SODIUM 250 MG CAPSULE PO SCH (09:00)
[2022-10-02] MEDS: QUETIAPINE FUMARATE 100 MG TABLET PO SCH (09:00)
[2022-10-02] MEDS: ASCORBIC ACID 500 MG TABLET PO SCH (09:00)
[2022-10-02] MEDS: GABAPENTIN 300 MG CAPSULE PO SCH ×3 (09:00→17:37)
[2022-10-02] MEDS ORDERED: MORPHINE SULFATE INJ 2 MG/ML DISP.SYRIN IV PRN (09:00)
[2022-10-02] MEDS: FAMOTIDINE (20 MG) 20 MG TABLET PO SCH ×2 (09:03→21:43)
[2022-10-02] MEDS: MORPHINE SULFATE INJ 4 MG/ML DISP.SYRIN IV PRN ×3 (09:04→22:35)
[2022-10-02 13:06] LABS: *HIV-1 log10 RNA 1.301 (.)
--- NOTE | 2022-10-02 16:13 | NUR ---
MS RN NOTE BP 78/[address] JAFFE WITH ORDER TO RESUME IVF AT 125 ML PER HOUR AND CORTISOL LEVEL IN AM
[2022-10-02] MEDS ORDERED: LR IV PRN (16:30)
[2022-10-02] MEDS ORDERED: POTASSIUM CHLORIDE IV PRN (16:30)
--- NOTE | 2022-10-02 18:55 | NUR ---
MS RN NOTE K 4.[address] JAFFE WITH ORDER NS AT 125 ML PER HOUR BEFORE WAS LR WITH 40 MEQ KCL AT 125 ML PER HOUR, ORDER CARRIEDE OUT
--- NOTE | 2022-10-02 18:58 | NUR ---
RN CLOSING NOTE PATIENT IN BED, ALERT AND ORIENTED X 3-4. ON ROOM AIR WITH NO S/S OF RESPIRATORY DISTRESS OR SOB. BREATHING EVEN AND UNLABORED. ON TELE MONITOR. IV ACCESS GUERO MIDLINE RUNNING LR WITH 40 MEQ KCL RUNNING AT 125 ML/HR. LEFT NEPHROSTOMY TUBE PRESENT AND INTACT. SAFETY PRECAUTIONS IN PLACE WITH BED IN LOWEST AND LOCKED POSITION, SIDE RAILS UP X2, BEDSIDE TABLE AND CALL LIGHT WITHIN REACH. WILL ENDORSE TO THE NEXT SHIFT NURSE FOR LEONARDA.
[2022-10-02] MEDS ORDERED: IV NS 0.9% 1,000 ML IV ONE (19:00)
--- NOTE | 2022-10-02 20:11 | NUR ---
MS RN OPENING NOTE PATIENT SLEEPING IN BED, EASILY AWAKENED, ALERT/ORIENTED X 3, PT ABLE TO MAKE NEEDS KNOWN. PATIENT STABLE ON RA, NO S/S OF DISTRESS OR SOB NOTED, BREATHING EVEN AND UNLABORED. GUERO MIDLINE INFUSING NS @ 125 ML/HR X 1, PER DAYSHIFT RN NO LONGER NEEDS POTASSIUM CHLORIDE [address] MEQ IN LR PER DR. JAFFE, POTASSIUM WNL NOW. LEFT NEPHROSTOMY TUBE IN PLACE, EMPTIED OUT 450 ML OF YELLOW URINE. SAFETY MEASURES IN PLACE: CALL LIGHT WITHIN REACH, SIDE RAILS UP X 2, BED LOCKED IN LOWEST POSITION, BED ALARM ON. WILL CONTINUE TO MONITOR PATIENT
[2022-10-02] MEDS: MIRTAZAPINE 15 MG TABLET PO SCH (21:43)
[2022-10-02] MEDS: ONDANSETRON HCL/PF 4 MG/2 ML VIAL IVP PRN (22:35)
--- NOTE | 2022-10-02 22:40 | NUR ---
MS RN NOTE PATIENT HAD 1 EPISODE OF EMESIS, PRN ZOFRAN 4 MG IV GIVEN ORDERED. PATIENT ALSO C/O 9/10 PAIN ON SACRAL, HIP WOUNDS, SCREAMING AND CRYING. BP WNL. PRN MORPHINE 4MG IV Q4H GIVEN ORDERED. WILL CONTINUE TO MONITOR
[2022-10-03] MEDS: MEROPENEM 1 G in IV NS 0.9% 100 ML IV SCH (00:49)
[2022-10-03 04:00] VITALS: BP 95/55
[2022-10-03] MEDS: MORPHINE SULFATE INJ 4 MG/ML DISP.SYRIN IV PRN (05:34)
[2022-10-03 06:05] LABS: BASOPHILS % (AUTO) 0.8 % (0.0-2.0); EOSINOPHILS % (AUTO) 4.5 % (0.0-6.0); HEMATOCRIT 31 % (33-45); HEMOGLOBIN 9.8 g/dL (11.5-14.8); LYMPHOCYTES # (AUTO) 1.1 K/uL (0.8-4.8); LYMPHOCYTES % (AUTO) 25.1 % (20.0-44.0); MEAN CORPUSCULAR HGB CONC 32 g/dl (31.0-36.0); MEAN CORPUSCULAR VOLUME 90 fL (82-100); MONOCYTES # (AUTO) 0.5 K/uL (0.1-1.30); MONOCYTES % (AUTO) 10.3 % (2.0-12.0); NEUTROPHILS # (AUTO) 2.6 K/uL (1.8-8.9); NEUTROPHILS % (AUTO) 59.3 % (43.0-81.0); PLATELET COUNT (AUTO) 144 K/uL (150-450); RED BLOOD CELL COUNT(AUTO) 3.43 MIL/uL (4.0-5.2); WHITE BLOOD COUNT (AUTO) 4.4 K/uL (4.3-11.0)
[2022-10-03 06:14] LABS: CREATININE 0.7 mg/dL (0.6-1.3); POTASSIUM 3.8 mmol/L (3.5-5.1)
[2022-10-03] MEDS ORDERED: POTASSIUM CHLORIDE IV SCH (07:00)
[2022-10-03] MEDS ORDERED: LR IV SCH (07:00)
--- NOTE | 2022-10-03 07:00 | NUR ---
RN OPENING NOTE RECEIVED PATIENT IN BED, ALERT AND ORIENTED X 3-4. ON ROOM AIR WITH NO S/S OF RESPIRATORY DISTRESS OR SOB. BREATHING EVEN AND UNLABORED. ON MEDSURGE, IV ACCESS GUERO MIDLINE, INTACT AND FLUSHING WELL. LEFT NEPHROSTOMY TUBE PRESENT DRAINING AND INTACT. SAFETY PRECAUTIONS IN PLACE WITH BED IN LOWEST AND LOCKED POSITION, SIDE RAILS UP X2, BEDSIDE TABLE AND CALL LIGHT WITHIN REACH. WILL CONTINUE TO MONITOR.
--- NOTE | 2022-10-03 07:12 | NUR ---
MS RN CLOSING NOTE PATIENT SLEEPING IN BED, ALERT/ORIENTED X 4, PT ABLE TO MAKE NEEDS KNOWN, PT IRRITABLE AND SCREAMING AT TIMES. PATIENT STABLE ON RA, NO S/S OF DISTRESS OR SOB NOTED, BREATHING EVEN AND UNLABORED. IV ACCESS ON GUERO MIDLINE INTACT AND SALINE LOCKED. LEFT NEPHROSTOMY TUBE INTACT WITH 1225 ML OUTPUT. PATIENT HAD 1 BM THIS SHIFT, WOUND CARE DONE. MEDICATIONS GIVEN ORDERED, PT NEEDS MET THROUGHOUT SHIFT, WOUND PHOTOS TAKEN AND PLACED IN CHART. SAFETY MEASURES IN PLACE: CALL LIGHT WITHIN REACH, SIDE RAILS UP X 3, BED LOCKED IN LOWEST POSITION. WILL ENDORSE TO DAYSHIFT RN FOR CONTINUITY OF CARE
[2022-10-03] MEDS: PANTOPRAZOLE 40 MG TABLET.DR PO SCH (07:49)
--- NOTE | 2022-10-03 07:53 | NUR ---
RN NOTE NOTIFIED BLOOD BANK, LALIT ACKNOWLEDGED PLASMA TRANSFUSION ON EMAR FOR 153 HOURS. ENDED TRANSFUSION.
[2022-10-03 08:00] VITALS: BP 95/54
--- NOTE | 2022-10-03 08:04 | NUR ---
RN NOTE ENDORSED CONTINUITY OF CARE TO JEANETTE ROTHMAN AT THIS TIME.
[2022-10-03] MEDS: ACETAMINOPHEN 325 MG TABLET PO PRN (08:06)
--- NOTE | 2022-10-03 08:06 | NUR ---
RN NOTE PATIENT RUNNING A FEVER AT 100.0 COOLING MEASURES REFUSED. TYLENOL WAS GIVEN.
[2022-10-03] MEDS: CLOTRIMAZOLE 1% 15 GM TUBE TP SCH ×2 (08:54→17:09)
[2022-10-03] MEDS: MULTIVITAMINS,THERAGRAN 1 UDTAB TABLET PO SCH (08:59)
[2022-10-03] MEDS: GABAPENTIN 300 MG CAPSULE PO SCH ×3 (08:59→17:09)
[2022-10-03] MEDS: DOCUSATE SODIUM 250 MG CAPSULE PO SCH (08:59)
[2022-10-03] MEDS: QUETIAPINE FUMARATE 100 MG TABLET PO SCH (08:59)
[2022-10-03] MEDS: FAMOTIDINE (20 MG) 20 MG TABLET PO SCH ×2 (08:59→21:28)
[2022-10-03] MEDS: ASCORBIC ACID 500 MG TABLET PO SCH (08:59)
[2022-10-03] MEDS: ZINC SULFATE 220 MG CAPSULE PO SCH (08:59)
[2022-10-03] MEDS: PROSOURCE / PROSTAT (PYXIS) 30 ML UDC GT SCH ×2 (09:00→17:47)
[2022-10-03] MEDS ORDERED: MORPHINE SULFATE INJ 4 MG/ML DISP.SYRIN IV PRN (09:30)
[2022-10-03] MEDS: IV NS 0.9% 1,000 ML IV PRN ×2 (09:56→23:41)
--- NOTE | 2022-10-03 10:00 | NUR ---
RN NOTE PATIENTS TEMPERATURES RE-CHECKED, 98.1 WILL CONTINUE TO MONITOR.
[2022-10-03] MEDS: MORPHINE SULFATE INJ 2 MG/ML DISP.SYRIN IV PRN ×2 (10:35→22:59)
[2022-10-03] MEDS: MEROPENEM 500 MG in IV NS 0.9% 100 ML IV SCH ×2 (13:23→21:28)
--- NOTE | 2022-10-03 14:30 | NUR ---
RN NOTE PATIENT WAS SEEN BY DR. HALE WHO SAID THAT SHE WILL CHANGE SEREQUEL TO PRN AND ALSO MADE AWARE OF THE POOR PO INTAKE, DOCTOR VERBALIZED PATIENT EXPRESSED HER FEAR FROM HER HEALTH MD STATED SHE WILL PRESCRIBED ANTIDEPRESSANT.
[2022-10-03 16:27] VITALS: BP 82/43
--- NOTE | 2022-10-03 18:47 | NUR ---
RN CLOSING NOTE PATIENT IS SLEEPING IN BED, ALERT/ORIENTED X 4, PT ABLE TO MAKE NEEDS KNOWN. PATIENT IS STABLE AND ON ROOM AIR, NO SIGNS OR SYMPTOMS OF DISTRESS OR SHORTNESS OF BREATH NOTED, BREATHING EVEN AND UNLABORED. IV ACCESS ON GUERO MIDLINE INTACT AND FLUSHING WELL. LEFT NEPHROSTOMY TUBE INTACT WITH 750CC OUTPUT. PATIENT HAD 1 BM THIS SHIFT, WOUND CARE DONE. MEDICATIONS GIVEN ORDERED, ALL NEEDS WERE MET THROUGHOUT SHIFT. SAFETY MEASURES IN PLACE, CALL LIGHT WITHIN REACH, SIDE RAILS UP X 3, BED LOCKED IN LOWEST POSITION. WILL ENDORSE TO UTILIZATION MANAGEMENT RN RN FOR CONTINUITY OF CARE
[2022-10-03] MEDS ORDERED: QUETIAPINE FUMARATE 25 MG TABLET PO PRN (19:00)
--- NOTE | 2022-10-03 19:15 | NUR ---
RN NOTE RECEIVED PT IN BED, ASLEEP, EASILY AROUSEABLE. RESPIRATION EVEN AND UNLABORED. PT ON ROOM AIR, NO ACUTE RESP DISTRESS NOTED. AFEBRILE. NO EVIDENCE OF PAIN/DISCOMFORT AT THIS TIME. GUERO ML CLEAN, DRY, PATENT, CURRENTLY INFUSING NS AT 100ML/HR, WELL TOLERATED. LEFT NEPHROSTOMY BAG IN PLACED, PATENT, NOTED WITH CLEAR, YELLOW OUTPUT. HOB ELEVATED, CALL LIGHT WITHIN EASY REACH. BED IN LOWEST POSITION, LOCKED, BED ALARM ON. WILL CONT. POC.
[2022-10-03] MEDS: MIRTAZAPINE 15 MG TABLET PO SCH (21:28)
--- NOTE | 2022-10-03 21:30 | NUR ---
RN NOTE CRIRTICAL LAB VALUE FROM LAB: STOOL SMEAR RESULT POSITIVE FOR [employer], NOTIFIED [employer] PEDERSON WITH ORDER TO PUT PT ON DROPLET/CONTACT ISOLATION.
[2022-10-03] MEDS: NEOMY SULF/BACITRAC ZN/POLY 15 GM TUBE TP SCH (23:30)
[2022-10-03] MEDS: ACETAMINOPHEN ES 500 MG TABLET PO PRN (23:31)
[2022-10-04] VITALS: BP 85/46
[2022-10-04] MEDS: MEROPENEM 500 MG in IV NS 0.9% 100 ML IV SCH ×3 (05:09→20:45)
--- NOTE | 2022-10-04 06:40 | NUR ---
RN NOTE PT REMAINS IN STABLE CONDITION. REMAINS ON ROOM AIR, WELL BOB. NO SOB/ACUTE RESP DISTRESS NOTED. GUERO ML INFUSING NS AT 100ML/HR, AND ATBX MERREM AT 33.33ML/HR ORDERED, WELL TOLERATED. L NEPHROSTOMY TUBE IN PLACED, PATENT, 850ML OUTPUT THROUGHOUT THE SHIFT. ALL NEEDS ATTENDED. KEPT PT CLEAN, DRY, AND COMFORTABLE. CALL LIGHT WITHIN EASY REACH. WILL ENDORSE TO AM SHIFT NURSE FOR LEONARDA. Addendum: 10/04/22 at 0643 by HOLDEN TOUSSAINT RN ADDENDUM: DROPLET/CONTACT ISOLATION OBSERVED AT ALL TIMES.
[2022-10-04] MEDS: PANTOPRAZOLE 40 MG TABLET.DR PO SCH (07:30)
--- NOTE | 2022-10-04 08:09 | NUR ---
RN OPENING NOTE PT ALERT AND ORIENTED X4. ON ROOM AIR TOLERATING AT 95%. PT HAS LEFT NEPHROSTOMY BAG. PT HAS LEFT UPPER ARM MIDLINE. IV INTACT, PATENT AND FLUSHING WELL. ALL SAFETY MEASURES IN PLACE. CALL LIGHT WITHIN REACH. BED LOCKED AT LOWEST POSITION. SIDE RAILS UP X2. BED ALARM ON
[2022-10-04] MEDS: FAMOTIDINE (20 MG) 20 MG TABLET PO SCH ×2 (09:00→20:47)
[2022-10-04] MEDS: DOCUSATE SODIUM 250 MG CAPSULE PO SCH (09:00)
[2022-10-04] MEDS: ZINC SULFATE 220 MG CAPSULE PO SCH (09:00)
[2022-10-04] MEDS: GABAPENTIN 300 MG CAPSULE PO SCH ×3 (09:00→17:29)
[2022-10-04] MEDS: QUETIAPINE FUMARATE 100 MG TABLET PO SCH (09:00)
[2022-10-04] MEDS: PROSOURCE / PROSTAT (PYXIS) 30 ML UDC GT SCH ×2 (09:00→16:06)
[2022-10-04] MEDS: FLUOXETINE HCL 20 MG CAPSULE PO SCH (09:00)
[2022-10-04] MEDS: MULTIVITAMINS,THERAGRAN 1 UDTAB TABLET PO SCH (09:00)
[2022-10-04] MEDS: ASCORBIC ACID 500 MG TABLET PO SCH (09:00)
--- NOTE | 2022-10-04 09:52 | NUR ---
rn note pt refused vital signs and morning medications. notified Addendum: 10/04/22 at 1137 by STUART FINNEGAN RN dr.rutherford hernandez
[2022-10-04] MEDS: IV NS 0.9% 1,000 ML IV PRN (09:53)
[2022-10-04 12:00] VITALS: BP 124/67
[2022-10-04] MEDS: MORPHINE SULFATE INJ 2 MG/ML DISP.SYRIN IV PRN ×3 (12:00→20:45)
[2022-10-04] MEDS: NEOMY SULF/BACITRAC ZN/POLY 15 GM TUBE TP SCH (15:50)
[2022-10-04 16:00] VITALS: BP 99/55
--- NOTE | 2022-10-04 16:00 | NUR ---
rn note 0800 vital signs not done.pt refused
--- NOTE | 2022-10-04 16:18 | NUR ---
RN NOTE PT COMPLAINING OF SEVERE BACK PAIN. BP 99/55. NOTIFIED IF OKAY TO GIVE MORPHINE. SAID OKAY TO GIVE
[2022-10-04] MEDS: CLOTRIMAZOLE 1% 15 GM TUBE TP SCH ×2 (17:00→17:27)
--- NOTE | 2022-10-04 19:00 | NUR ---
RN NOTES: RECEIVED AWAKE ON BED, A/OX4, ON ROOM AIR SPO2-100%, LEFT NEPHROSTOMY DRAINING INTO YELLOWISH COLORED URINE, CLEAR, NO SEDIMENTS AT 50CC LEVEL, GUERO ML INTACT AND PATENT WITH NS AT 100 ML/HR, ORIENTED TO UNIT AND STAFF, PER ENDORSEMENT HER BP IS A BIT LOW, WANTS HER PAIN MEDICATION GIVEN, MD AWARE OF LOW BP. ENCOURAGE TO DRINK TOLERATED. Addendum: 10/04/22 at 6604 by CHITO ALMONTE RN DEANA NOTES: RIGHT ARM AMPUTATION.
--- NOTE | 2022-10-04 19:15 | NUR ---
RN CLOSING NOTE PT ALERT AND ORIENTED X4. ON ROOM AIR TOLERATING AT 99%. NO SIGNS OF PAIN OR DISCOMFORT NOTED AT THIS TIME. PT HAS LEFT NEPHROSTOMY BAG. YELLOW COLOR OUTPUT. PT HAS LEFT UPPER ARM MIDLINE. IV INTACT, PATENT AND FLUSHING WELL. ALL SAFETY MEASURES IN PLACE. CALL LIGHT WITHIN REACH. BED LOCKED AT LOWEST POSITION. SIDE RAILS UP X2. BED ALARM ON.ENDORSED TO NURSE PRACTITIONER HOME ASSESSMENTS RN FOR CONTUITY OF CARE
[2022-10-04 20:00] VITALS: BP 90/47
--- NOTE | 2022-10-04 20:55 | NUR ---
RN NOTES: COMPLAINED OF PAIN DURING REPOSITIONING BP-90/47, RE-CHECK 90/50 SHE WAS INSISTING FOR MORPHINE INJECTION, IN THE MORNING ENDORSEMENT MD AWARE OF HER LOW BP, ITS OK TO GIVE MORPHINE NEEDED.CHARGE NURSE MADE AWARE.
[2022-10-04] MEDS: MIRTAZAPINE 15 MG TABLET PO SCH (21:09)
[2022-10-04] MEDS: ACETAMINOPHEN ES 500 MG TABLET PO PRN (21:09)
--- NOTE | 2022-10-04 21:10 | NUR ---
RN NOTES: WRONG REMOVAL OF TYLENOL FROM THE [facility] OF 500 MG , TAKEN 365 MG, CHARGE NURSE NOTIFIED, RETURNED BACK TO [facility] WITH PRINTED RECEIPT, THEN TAKEN THE CORRECT DOSE OF 500 MG THEN GIVEN TO PATIENT FOR TEMP 100.6 AND PAIN.
--- NOTE | 2022-10-04 21:33 | NUR ---
RN NOTES: MORE FRIENDLY AND COOPERATIVE WITH CARE, GIVEN SNACKS, INCREASE FLUIDS TOLERATED, NO FACIAL GRIMACE NOTED.
--- NOTE | 2022-10-04 23:26 | NUR ---
RN NOTES: BRIEF IS WET, CLEAN AND CHANGE, DRESSING CHANGE ON THE SACRAL AREA, HANDLE GENTLY VERY SENSITIVE DURING REPOSITIONING, COMFORT MEASURE PROVIDED. Addendum: 10/04/22 at 2345 by CHITO ALMONTE RN ADDED NOTES: NEHROSTOMY TUBE-LEFT- DRAINED 650 CC OF URINE
[2022-10-05] VITALS: BP 98/50
[2022-10-05 04:00] VITALS: BP 99/53
[2022-10-05] MEDS: MEROPENEM 500 MG in IV NS 0.9% 100 ML IV SCH ×3 (04:16→21:06)
[2022-10-05] MEDS: IV NS 0.9% 1,000 ML IV PRN ×2 (04:17→22:52)
--- NOTE | 2022-10-05 05:34 | NUR ---
RN NOTES: ASLEEP, AWAKEN FOR BLOOD TEST BY ARUNA/EVENT MARKETING ASSISTANT SHE REFUSED FOR BLOOD EXTRACTION, INSTRUCT TO RETURN BACK AGAIN LATER.
[2022-10-05] MEDS: MORPHINE SULFATE INJ 2 MG/ML DISP.SYRIN IV PRN ×4 (05:58→19:27)
--- NOTE | 2022-10-05 05:59 | NUR ---
RN NOTES: REFUSED TO BE CHANGE, CRYING IN PAIN UPON SHE WAKE UP, ASKING FOR HER PAIN MEDS, GIVEN.NON PHARMACOLOGIC INTERVENTION RENDERED.
--- NOTE | 2022-10-05 06:42 | NUR ---
RN NOTES: AFTER PAIN MEDICATION GIVEN ABLE TO GO BACK TO SLEEP, NEPHROSTOMY TUBE DRAINAGE -13OO, NO BM, REFUSED TO CHANGE BRIEF AT THIS TIME, REPOSITIONED, NON LABORED BREATHING, ENDORSED TO F/U WITH FAMILY TO OBTAIN HIV RECORDS AND SUBMIT TO US, SAFETY PRECAUTION MAINTAINED.
--- NOTE | 2022-10-05 07:11 | NUR ---
RN OPENING NOTE PT ALERT AND ORIENTED X4. ON ROOM AIR TOLERATING ABOVE 92%. NO SIGNS OF PAIN OR DISCOMFORT NOTED AT THIS TIME. PT HAS LEFT NEPHROSTOMY BAG. YELLOW COLOR OUTPUT. PT HAS LEFT UPPER ARM MIDLINE. IV INTACT, PATENT AND FLUSHING WELL. ALL SAFETY MEASURES IN PLACE. CALL LIGHT WITHIN REACH. BED LOCKED AT LOWEST POSITION. SIDE RAILS UP X2. BED ALARM ON.
[2022-10-05] MEDS: PANTOPRAZOLE 40 MG TABLET.DR PO SCH (07:30)
[2022-10-05 08:00] VITALS: BP 125/60
[2022-10-05] MEDS: DOCUSATE SODIUM 250 MG CAPSULE PO SCH (09:00)
[2022-10-05] MEDS: ASCORBIC ACID 500 MG TABLET PO SCH (09:00)
[2022-10-05] MEDS: PROSOURCE / PROSTAT (PYXIS) 30 ML UDC GT SCH ×2 (09:00→16:09)
[2022-10-05] MEDS: ZINC SULFATE 220 MG CAPSULE PO SCH (09:00)
[2022-10-05] MEDS: FAMOTIDINE (20 MG) 20 MG TABLET PO SCH ×2 (09:00→21:06)
[2022-10-05] MEDS: GABAPENTIN 300 MG CAPSULE PO SCH ×3 (09:00→16:09)
[2022-10-05] MEDS: QUETIAPINE FUMARATE 100 MG TABLET PO SCH (09:00)
[2022-10-05] MEDS: FLUOXETINE HCL 20 MG CAPSULE PO SCH (09:00)
[2022-10-05] MEDS: MULTIVITAMINS,THERAGRAN 1 UDTAB TABLET PO SCH (09:00)
--- NOTE | 2022-10-05 09:15 | NUR ---
rn note pt refuses 0900 morning medications. provided education on the importance of taking medications. pt still refused
[2022-10-05] MEDS: NEOMY SULF/BACITRAC ZN/POLY 15 GM TUBE TP SCH (11:15)
[2022-10-05] MEDS: CLOTRIMAZOLE 1% 15 GM TUBE TP SCH ×2 (11:15→16:09)
[2022-10-05] MEDS ORDERED: VANCOMYCIN 1 GM in IV D5W 250 ML IV ONE (12:00)
[2022-10-05 16:00] VITALS: BP 135/77
--- NOTE | 2022-10-05 17:58 | NUR ---
stef note took out tylenol es 325 mg, [facility] 500 mg 1 tablet Addendum: 10/05/22 at 1759 by STUART FINNEGAN RN active order pralberto tylenol es 500 mg 1 tablet Addendum: 10/05/22 at 1801 by STUART FINNEGAN RN pharmacy aware Addendum: 10/05/22 at 1816 by STUART FINNEGAN RN contract attorney aware
[2022-10-05] MEDS: ACETAMINOPHEN ES 500 MG TABLET PO PRN (18:00)
--- NOTE | 2022-10-05 18:17 | NUR ---
RN NOTE ONLY 1 TABLET TYLENOL ES 500 MG ADMINISTERED TO PATIENT COMPLAINING OF SEVERE HEADACHE. ACCIDENTALLY TOOK OUT TYLENOL 325 MG IN [facility]. RETURNED TO [facility]. PHARMACY AND NOVELTY MAKER AWARE
--- NOTE | 2022-10-05 19:18 | NUR ---
RN CLOSING NOTE PT ALERT AND ORIENTED X4. ON ROOM AIR TOLERATING AT 100%. NO SIGNS OF PAIN OR DISCOMFORT NOTED AT THIS TIME. PT HAS LEFT NEPHROSTOMY BAG. YELLOW COLOR OUTPUT.CLEAN, DRY AND INTACT. PT HAS LEFT UPPER ARM MIDLINE. IV INTACT, PATENT AND FLUSHING WELL. ALL SAFETY MEASURES IN PLACE. CALL LIGHT WITHIN REACH. BED LOCKED AT LOWEST POSITION. SIDE RAILS UP X2. BED ALARM ON.ENDORSED TO RECRUIT INSTRUCTOR RN FOR CONTUITY OF CARE
--- NOTE | 2022-10-05 19:20 | NUR ---
MS RN OPENING NOTE RECEIVED PATIENT FROM AM NURSE; PATIENT IS A/O X 4, ABLE TO MAKE NEEDS KNOWN; STABLE ON ROOM AIR, BREATHING EVENLY AND NO S/S OF DISTRESS NOTED; WITH LEFT NEPHROSTOMY BAG IN PLACE DRAINING TO YELLOW COLORED URINE; WITH MIDLINE ACCESS AT LEFT UPPER ARM RUNNING WITH MEROPENEM; ENCOURAGED VERBALIZATION OF NEEDS; SAFETY MEASURES IMPLEMENTED, BED IN LOW AND LOCKED POSITION, SIDE RAILS UP X 2, CALL LIGHT AND TABLE WITHIN REACH; WILL CONTINUE TO MONITOR THROUGHOUT SHIFT
[2022-10-05] MEDS: VANCOMYCIN 500 MG in IV D5W 100 ML IV SCH (19:58)
[2022-10-05 20:00] VITALS: BP 110/70
[2022-10-05] MEDS: MIRTAZAPINE 15 MG TABLET PO SCH (21:06)
[2022-10-06] MEDS: MORPHINE SULFATE INJ 2 MG/ML DISP.SYRIN IV PRN ×6 (02:16→23:31)
[2022-10-06] MEDS: VANCOMYCIN 500 MG in IV D5W 100 ML IV SCH ×2 (03:33→12:08)
[2022-10-06 04:00] VITALS: BP 108/59
[2022-10-06] MEDS: MEROPENEM 500 MG in IV NS 0.9% 100 ML IV SCH (05:02)
--- NOTE | 2022-10-06 06:53 | NUR ---
MS RN CLOSING NOTE PATIENT IS A/O X 4, ABLE TO MAKE NEEDS KNOWN; STABLE ON ROOM AIR, BREATHING EVENLY AND NO S/S OF DISTRESS NOTED; WITH LEFT NEPHROSTOMY BAG IN PLACE DRAINING TO YELLOW COLORED URINE; WITH MIDLINE ACCESS AT LEFT UPPER ARM WITH ONGOING MEROPENEM AT 33.33ML/HR; ADMINISTERED MEDICATIONS PRESCRIBED; CHECKED BLOOD PRESSURE PRIOR TO GIVING PAIN MEDICATION; PATIENT'S NEEDS ATTENDED; MONITORED PATIENT ACCORDINGLY; SAFETY MEASURES IMPLEMENTED, BED IN LOW AND LOCKED POSITION, SIDE RAILS UP X 2, CALL LIGHT AND TABLE WITHIN REACH; WILL ENDORSE TO AM NURSE FOR LEONARDA.
[2022-10-06] MEDS: ZINC SULFATE 220 MG CAPSULE PO SCH (08:05)
[2022-10-06] MEDS: MULTIVITAMINS,THERAGRAN 1 UDTAB TABLET PO SCH (08:05)
[2022-10-06] MEDS: DOCUSATE SODIUM 250 MG CAPSULE PO SCH (08:06)
[2022-10-06] MEDS: GABAPENTIN 300 MG CAPSULE PO SCH ×3 (08:06→17:11)
[2022-10-06] MEDS: FAMOTIDINE (20 MG) 20 MG TABLET PO SCH ×2 (08:06→21:00)
[2022-10-06] MEDS: PANTOPRAZOLE 40 MG TABLET.DR PO SCH (08:06)
--- NOTE | 2022-10-06 08:16 | NUR ---
RN OPENING NOTES: RECIEVED PATIENT ASLEEP, SHE IS A/O X 4, ABLE TO MAKE ALL NEEDS KNOWN; STABLE ON ROOM AIR, BREATHING EVENLY NO SOB AND NO S/S OF DISTRESS NOTED; SPOKE WITH MD TO HAVE LAB REDRAW BLOOD FOR SPECIMEN TO EVALUATE, EDUCATED PT IMPORTANCE OF BEING COMPLIANT WITH CARE, WILL HOLD THE MORPHINE DOSE UNTILE THE BLOOD IS DRAWN AT THIS TIME, LEFT NEPHROSTOMY BAG IS IN PLACE DRAINING TO YELLOW COLORED URINE; MIDLINE ACCESS AT LEFT UPPER ARM WITH ONGOING MEROPENEM AT 33.33ML/HR; ADMINISTERED MEDICATIONS PRESCRIBED; CHECKED BLOOD PRESSURE PRIOR TO GIVING PAIN MEDICATION; PATIENT'S NEEDS ATTENDED TO IN TIMELY MANNER ; MONITORED PATIENT ACCORDINGLY; SAFETY MEASURES IMPLEMENTED, BED IN LOW AND ALL WHEELS ARE IN LOCKED POSITION, SIDE RAILS UP X 2, CALL LIGHT AND TABLE WITHIN REACH
[2022-10-06] MEDS: IV NS 0.9% 1,000 ML IV SCH (08:30)
[2022-10-06] MEDS: QUETIAPINE FUMARATE 100 MG TABLET PO SCH (08:38)
[2022-10-06] MEDS: PROSOURCE / PROSTAT (PYXIS) 30 ML UDC GT SCH ×2 (09:42→17:11)
[2022-10-06] MEDS: ASCORBIC ACID 500 MG TABLET PO SCH (09:43)
[2022-10-06] MEDS: FLUOXETINE HCL 20 MG CAPSULE PO SCH (09:43)
[2022-10-06] MEDS: NEOMY SULF/BACITRAC ZN/POLY 15 GM TUBE TP SCH (09:44)
[2022-10-06] MEDS: CLOTRIMAZOLE 1% 15 GM TUBE TP SCH ×2 (09:44→17:00)
[2022-10-06 11:41] LABS: BASOPHILS # (AUTO) 0.1 K/uL (0.0-0.2); BASOPHILS % (AUTO) 1.2 % (0.0-2.0); EOSINOPHILS % (AUTO) 3.4 % (0.0-6.0); HEMATOCRIT 37 % (33-45); HEMOGLOBIN 11.2 g/dL (11.5-14.8); LYMPHOCYTES # (AUTO) 1.4 K/uL (0.8-4.8); LYMPHOCYTES % (AUTO) 24.6 % (20.0-44.0); MEAN CORPUSCULAR HGB CONC 31 g/dl (31.0-36.0); MEAN CORPUSCULAR VOLUME 93 fL (82-100); MONOCYTES # (AUTO) 0.5 K/uL (0.1-1.30); MONOCYTES % (AUTO) 9.6 % (2.0-12.0); NEUTROPHILS # (AUTO) 3.5 K/uL (1.8-8.9); NEUTROPHILS % (AUTO) 61.2 % (43.0-81.0); PLATELET COUNT (AUTO) 120 K/uL (150-450); RED BLOOD CELL COUNT(AUTO) 3.93 MIL/uL (4.0-5.2); WHITE BLOOD COUNT (AUTO) 5.7 K/uL (4.3-11.0)
[2022-10-06 12:00] LABS: CALCIUM, SERUM 9.5 mg/dL (8.5-10.1); CREATININE 0.5 mg/dL (0.6-1.3); POTASSIUM 3.7 mmol/L (3.5-5.1)
[2022-10-06] MEDS ORDERED: EMTRICITABINE/TENOFOVIR 1 TAB PO SCH (13:30)
[2022-10-06] MEDS: MEROPENEM 1,000 MG in IV NS 0.9% 100 ML IV SCH ×2 (14:50→21:06)
[2022-10-06] MEDS: MENTHOL/CETYLPYRD (CEPACOL) 1 LOZ LOZENGE PO PRN (14:50)
[2022-10-06] MEDS: TENOFOVIR DISOPROXIL FUMARATE 300 MG TABLET PO SCH (14:50)
[2022-10-06] MEDS: RALTEGRAVIR POTASSIUM 400 MG TABLET PO SCH (19:08)
[2022-10-06] MEDS: EMTRICITABINE 200 MG CAPSULE PO SCH (19:08)
--- NOTE | 2022-10-06 19:37 | NUR ---
RN OPENING NOTE PATIENT AWAKE IN BED. A/OX3. NO S/S OF DISTRESS, BREATHING WITHOUT DIFFICULTY ON ROOM AIR. GUERO MIDLINE #18 INTACT AND PATENT W/ NS 60ML/HR. SAFETY MEASURES IN PLACE: BED LOCKED AND AT LOWEST POSITION, MID-FOWLERS, RAILS UP X2, CALL GORMAN WITHIN REACH. WILL CONTINUE TO MONITOR PATIENT.
[2022-10-06] MEDS: MIRTAZAPINE 15 MG TABLET PO SCH (21:06)
[2022-10-06] MEDS: ONDANSETRON HCL/PF 4 MG/2 ML VIAL IVP PRN (21:15)
[2022-10-07] MEDS: IV NS 0.9% 1,000 ML IV SCH ×2 (00:19→19:10)
[2022-10-07] MEDS ORDERED: VANCOMYCIN 500 MG in IV D5W 100 ML IV SCH (04:00)
[2022-10-07] MEDS: MEROPENEM 1,000 MG in IV NS 0.9% 100 ML IV SCH ×3 (04:40→21:52)
[2022-10-07] MEDS: MORPHINE SULFATE INJ 2 MG/ML DISP.SYRIN IV PRN ×5 (06:21→22:48)
--- NOTE | 2022-10-07 06:46 | NUR ---
RN CLOSING NOTE PATIENT AWAKE IN BED. A/OX3. NO S/S OF DISTRESS, BREATHING WITHOUT DIFFICULTY ON ROOM AIR. GUERO MIDLINE #18 INTACT AND PATENT W/ NS 60ML/HR. SAFETY MEASURES IN PLACE: BED LOCKED AND AT LOWEST POSITION, MID-FOWLERS, RAILS UP X2, CALL GORMAN WITHIN REACH. WILL ENDORSE TO NEXT SHIFT FOR LEONARDA.
--- NOTE | 2022-10-07 07:30 | NUR ---
MONOTYPE SETTER OPENING NOTE PATIENT AWAKE AND NON-COMPLIANT WITH NURSING CARE, RE-INFORMED PLAN OF CARE. PATIENT VERBALIZED UNDERSTANDING INFORMATION. PATIENT STATED I WANT MY PAIN MEDICATION ONLY I DO NOT WANT TO TAKE PILLS. PATIENT HAS NEPHROSTOMY TUBE DRAINING YELLOW FLUID, MODERATE AMOUNT NOTED. SKIN MULTIPLE WOUND, TREATMENT IN PROGRESS. SAFETY MEASURES IN PLACE, BED LOCKED TO LOWEST POSITION, CALL LIGHT, TABLE WITHIN REACH. IV ACCES GUERO INTACT. CONT. TO MONITOR.
[2022-10-07] MEDS: RALTEGRAVIR POTASSIUM 400 MG TABLET PO SCH ×2 (09:00→17:00)
[2022-10-07] MEDS: TENOFOVIR DISOPROXIL FUMARATE 300 MG TABLET PO SCH (09:00)
[2022-10-07] MEDS: NEOMY SULF/BACITRAC ZN/POLY 15 GM TUBE TP SCH (09:00)
[2022-10-07] MEDS: CLOTRIMAZOLE 1% 15 GM TUBE TP SCH ×2 (09:00→17:00)
[2022-10-07] MEDS: EMTRICITABINE 200 MG CAPSULE PO SCH (09:00)
[2022-10-07] MEDS: PANTOPRAZOLE 40 MG TABLET.DR PO SCH (09:01)
[2022-10-07] MEDS: GABAPENTIN 300 MG CAPSULE PO SCH ×3 (09:01→16:06)
[2022-10-07] MEDS: QUETIAPINE FUMARATE 100 MG TABLET PO SCH (09:01)
[2022-10-07] MEDS: ZINC SULFATE 220 MG CAPSULE PO SCH (09:02)
[2022-10-07] MEDS: ASCORBIC ACID 500 MG TABLET PO SCH (09:02)
[2022-10-07] MEDS: DOCUSATE SODIUM 250 MG CAPSULE PO SCH (09:02)
[2022-10-07] MEDS: FAMOTIDINE (20 MG) 20 MG TABLET PO SCH ×2 (09:02→21:00)
[2022-10-07] MEDS: FLUOXETINE HCL 20 MG CAPSULE PO SCH (09:02)
[2022-10-07] MEDS: MULTIVITAMINS,THERAGRAN 1 UDTAB TABLET PO SCH (09:02)
[2022-10-07] MEDS: PROSOURCE / PROSTAT (PYXIS) 30 ML UDC GT SCH ×2 (11:28→19:07)
[2022-10-07 15:48] LABS: IRON, SERUM 64 ug/dl (50-175); TOTAL IRON BINDING CAPACITY 49 ug/dl (250-450)
--- NOTE | 2022-10-07 19:00 | NUR ---
HARVESTER OPERATOR CLOSING NOTE PATIENT RESTING WITHOUT DIFFICULTY, PATIENT REFUSED PO MEDS THIS AFTERNOON AND ALSO WOUND CARE. PATIENT REFUSED TO HAVE BLOOD DRAW. NOTIFIES TO LILLIE CHARGE NURSE AND ALSO THE FOLLOWING NURSE. IV SITE INTACT, INFUSING IVF NS AT 60ML/HR. VOIDING USING BED BAZZI. SAFETY MEASURES IN PLACE, BED LOCKED TO THE LOWEST POSITION, CALL LIGHT, TABLE WITHIN REACH. PATIENT DENIES PAIN AT PRESENT. WILL ENDORSE TO NEXT SHIFT.
--- NOTE | 2022-10-07 19:29 | NUR ---
RN OPENING NOTES: RECEIVED PATIENT IN BED. AWAKE, A/OX3 AND VERBALLY RESPONSIVE. BREATHING EVEN AND UNLABORED. ON ROOM AIR AND PT TOLERATED WELL. IV ACCESS ON GUERO MIDLINE #18 INTACT AND PATENT, RUNNING NS AT 60ML/HR. NO C/O PAIN OR DISCOMFORT AT THIS MOMENT. ALL SAFETY MEASURES IN PLACE. BED IN LOWEST POSITION AND LOCKED. SIDE RAILS UP X2, PLACE CALL GORMAN WITHIN REACH. WILL CONTINUE TO MONITOR.
[2022-10-07 20:00] VITALS: BP 98/57
[2022-10-07] MEDS: MIRTAZAPINE 15 MG TABLET PO SCH (22:48)
--- NOTE | 2022-10-07 22:58 | NUR ---
RN NOTES: PT C/O SEVERE PAIN ON BACK, LEG AREA. MOEPHINE GIVEN PRN ORDERED. PT TOLERATED WELL.
[2022-10-08 04:00] VITALS: BP 96/55
[2022-10-08] MEDS: MEROPENEM 1,000 MG in IV NS 0.9% 100 ML IV SCH ×2 (05:11→12:06)
[2022-10-08] MEDS: MORPHINE SULFATE INJ 2 MG/ML DISP.SYRIN IV PRN ×3 (05:13→14:33)
--- NOTE | 2022-10-08 06:38 | NUR ---
RN CLOSING NOTES: PATIENT IN BED. AWAKE, A/OX3 AND VERBALLY RESPONSIVE. BREATHING EVEN AND UNLABORED. ON ROOM AIR AND PT TOLERATED WELL. O2 SAT 98%. IV ACCESS ON GUERO MIDLINE #18 INTACT AND PATENT, RUNNING NS AT 60ML/HR. MORPHINE GIVEN PRN ORDERED. ALL DUE MEDS GIVEN ALL SAFETY MEASURES IN PLACE. BED IN LOWEST POSITION AND LOCKED. SIDE RAILS UP X2, PLACE CALL GORMAN WITHIN REACH. WILL ENDORSE TO MORNING SHIFT NURSE.
--- NOTE | 2022-10-08 07:15 | NUR ---
ALMOND GRINDER OPENING NOTES Received pt awake in bed AOX3. No complaints of pain or discomfort at this time. Pt is on RA and tolerating it well. IV access on GUERO midline patent and intact. HOB elevated to 30-45 degrees. Siderials up at all times. Call light within reach. Will continue to monitor.
[2022-10-08] MEDS: PANTOPRAZOLE 40 MG TABLET.DR PO SCH (07:30)
[2022-10-08] MEDS: QUETIAPINE FUMARATE 100 MG TABLET PO SCH ×2 (09:00→09:10)
[2022-10-08] MEDS: FAMOTIDINE (20 MG) 20 MG TABLET PO SCH (09:00)
[2022-10-08] MEDS: MULTIVITAMINS,THERAGRAN 1 UDTAB TABLET PO SCH (09:00)
[2022-10-08] MEDS: PROSOURCE / PROSTAT (PYXIS) 30 ML UDC GT SCH ×2 (09:00→17:00)
[2022-10-08] MEDS: DOCUSATE SODIUM 250 MG CAPSULE PO SCH (09:00)
[2022-10-08] MEDS: TENOFOVIR DISOPROXIL FUMARATE 300 MG TABLET PO SCH ×2 (09:00→09:09)
[2022-10-08] MEDS: RALTEGRAVIR POTASSIUM 400 MG TABLET PO SCH ×3 (09:00→17:00)
[2022-10-08] MEDS: ZINC SULFATE 220 MG CAPSULE PO SCH (09:00)
[2022-10-08] MEDS: FLUOXETINE HCL 20 MG CAPSULE PO SCH ×2 (09:00→09:10)
[2022-10-08] MEDS: ASCORBIC ACID 500 MG TABLET PO SCH (09:00)
--- NOTE | 2022-10-08 09:00 | NUR ---
BILLING SPECIALIST NOTES Pt refused routine medications stating "I don't like taking a lot of pills, it'll make me throw up." Offered to crush medication and put it in apple sauce but pt said no. Explained risks and benefits of each medication that was refused. Offered an additional 3 more times but pt still refused.
[2022-10-08] MEDS: GABAPENTIN 300 MG CAPSULE PO SCH ×3 (09:09→17:00)
[2022-10-08] MEDS: EMTRICITABINE 200 MG CAPSULE PO SCH (09:09)
[2022-10-08] MEDS: CLOTRIMAZOLE 1% 15 GM TUBE TP SCH ×2 (09:11→17:00)
[2022-10-08] MEDS: NEOMY SULF/BACITRAC ZN/POLY 15 GM TUBE TP SCH (09:11)
[2022-10-08 10:07] LABS: CMV, IgG >10.00 U/mL (0.00-0.59)
[2022-10-08] MEDS: IV NS 0.9% 1,000 ML IV SCH (10:30)
[2022-10-08 11:56] VITALS: BP 108/59
--- NOTE | 2022-10-08 12:50 | NUR ---
COUPLING MACHINE OPERATOR NOTES Rapid COVID 19 test done as ordered for discharge.
--- NOTE | 2022-10-08 13:36 | NUR ---
CASE MANGEMENT NOTIFIED ABOUT DC.
--- NOTE | 2022-10-08 15:02 | NUR ---
VOLUNTEER SERVICES SPECIALIST NOTES Called [facility] to give report but Annmarie informed me that they cannot accept this pt right now due to AFB culture being positive and would like clearance from utilization manager and Infectious Disease MD. RUDY made aware, Mail Sorter And Delivery Isidra made aware.
--- NOTE | 2022-10-08 15:29 | NUR ---
MEDICAL COORDINATOR PESTICIDE USE NOTES Left a message to Dr. Wooten regarding facility not accepting pt and paged Domenica Garcia TRENCH SHOVEL OPERATOR. Awaiting response.
--- NOTE | 2022-10-08 15:55 | NUR ---
PRINTING SIGN MACHINE OPERATOR NOTES Spoke with DELONTE Metzger ID and stated pt is cleared for d/c. No active TB noted.
[2022-10-08 16:00] VITALS: BP 136/78
[2022-10-08] MEDS: ONDANSETRON HCL/PF 4 MG/2 ML VIAL IVP PRN (17:26)
--- NOTE | 2022-10-08 17:35 | NUR ---
TACK CLEANER NOTES Pt refused routine meds. Offered 3x but pt still refused. Explained risks and benefits. Pt also refused to take any picture of her current wounds.
--- NOTE | 2022-10-08 18:47 | NUR ---
MORPHOLOGY TEACHER NOTES AM ignacio came to picker and sorter load and unload pt for discharge. All paperwork and endorsement given to EMT. Pt refused to have midline taken out. MAUDE Diop called [facility] and spoke with Admission nurse Kenia and informed them about the midline IV refusal. Transferred from [facility] to [facility] safely.
== END 2022-10-08 18:53 | DRG 892 ==
LOC: ER 20:49 → TELE1 23:43 → MEDSG1 10-01 10:33
PROVIDERS: ADMIT Nurse Practitioner Acute Care
PROC: 30233N1 Transfusion of Nonautologous Red Blood Cells into Peripheral Vein, Percutaneous Approach (ICD-10-PCS; 2022-09-25)
PROC: 05HC33Z Insertion of Infusion Device into Left Basilic Vein, Percutaneous Approach (ICD-10-PCS; principal; 2022-09-26)
PROC: 30233L1 Transfusion of Nonautologous Fresh Plasma into Peripheral Vein, Percutaneous Approach (ICD-10-PCS; 2022-09-26)
DX: A41.52 Sepsis due to Pseudomonas (principal); B20 Human immunodeficiency virus [HIV] disease; E43 Unspecified severe protein-calorie malnutrition; D69.6 Thrombocytopenia, unspecified; R64 Cachexia; I95.89 Other hypotension; I50.9 Heart failure, unspecified; E87.1 Hypo-osmolality and hyponatremia; B96.5 Pseudomonas (aeruginosa) (mallei) (pseudomallei) as the cause of diseases classified elsewhere; D47.9 Neoplasm of uncertain behavior of lymphoid, hematopoietic and related tissue, unspecified; I11.0 Hypertensive heart disease with heart failure; E88.09 Other disorders of plasma-protein metabolism, not elsewhere classified; E86.1 Hypovolemia; E87.6 Hypokalemia; N10 Acute pyelonephritis; R59.0 Localized enlarged lymph nodes; Z87.442 Personal history of urinary calculi; Z93.6 Other artificial openings of urinary tract status; Z88.1 Allergy status to other antibiotic agents; Z79.899 Other long term (current) drug therapy; Z16.24 Resistance to multiple antibiotics; Z86.19 Personal history of other infectious and parasitic diseases; Z87.448 Personal history of other diseases of urinary system; D64.9 Anemia, unspecified; F32.A Depression, unspecified; J98.11 Atelectasis; K21.9 Gastro-esophageal reflux disease without esophagitis; K59.00 Constipation, unspecified; K82.8 Other specified diseases of gallbladder; N20.0 Calculus of kidney; Z87.440 Personal history of urinary (tract) infections; Z89.211 Acquired absence of right upper limb below elbow; M24.552 Contracture, left hip; M24.551 Contracture, right hip; M24.562 Contracture, left knee; M24.561 Contracture, right knee; Z53.20 Procedure and treatment not carried out because of patient's decision for unspecified reasons
CPT/HCPCS: 36410; 36415; 71250-TC; 80048-TC; 80053-TC; 80076-TC; 80202-TC; 81001; 82232; 82272-TC; 82533; 82570-TC; 82962-TC; 83540-TC; 83605-TC; 83615-TC; 83690-TC; 83735-TC; 84100-TC; 84300-TC; 84439-TC; 84443-TC; 84703-TC; 85025-TC; 85027-TC; 85652-TC; 85730-TC; 86360; 86431-TC; 86480; 86592; 86593; 86644; 86645; 86777; 86778; 86850-TC; 87040-TC; 87081-TC; 87086-TC; 87116; 87206; 87536; 93307-TC; A4216; A4217; A4223; A6403; G0378; J0692; J1200; J1720; J1885; J2060; J2175; J2185; J2270; J2405; J2930; J3370; J3475; J3480; J3490; J7030; J7040; J7050; J7060; J7120; P9016; P9017; P9047